=== PATIENT | female | born 1960 | race Caucasian/White ===

== ENCOUNTER → 2016-12-26 | Outpatient (CLI) | payer MEDICARE, MEDICAID ==
[~2016-12-26] MED LIST: CARV3.123 PO; CLON0.122 PO; DIPH1TAB PO; INFL100V IV; MESA400C2 PO; MIDO10TA PO; SOTA80TA PO; TRAM50TA4 PO
--- NOTE | 2016-12-26 10:39 | DI ---
Indication: ITS.REASON: Z72.0 Tobacco use PROCEDURE: CT LUNG SCREENING: Encounter: Initial Comparison: CT abdomen/pelvis dated November 08, 2016 Technique: Axial noncontrast CT imaging of the chest was performed on a [employer] Aquilion Prime [address] scanner using an ACR approved low dose lung cancer screening protocol. 1 mm thick axial slices were obtained with coronal and sagittal two-dimensional reformats. Automated Exposure Control and Iterative Reconstruction dose lowering techniques were utilized. Dose (DLP): 72.1 mGy.cm Prerequisites: This exam was performed in a facility that meets the criteria for the LDCT screening program. Data regarding this exam was submitted to an approved registry. The order for this exam indicates that it came as a result of a lung cancer screening counseling and shared decision-making visit that included all of the elements required of such a visit. The radiologist interpreting this exam meets the [facility] criteria for the LDCT lung cancer screening program. Standardized reporting is followed using the ACR Lung-RADS nomenclature and is extracted using a [employer] reporting system. Findings: Calcified 4 mm granuloma in the right lower lobe on axial image #205. There is also subpleural completely calcified granuloma in the right lower lobe on axial image #182 measuring 6 mm in size. Completely calcified 4 mm granuloma in the left lower lobe on image #192. No noncalcified pulmonary nodules or masses appreciated. No consolidative pneumonia, pleural effusion or pneumothorax. The central airways are patent. No evidence of bronchial wall thickening. Prior sternotomy with cardiac valve replacement. Left dual lead cardiac pacemaker and right internal jugular port catheter in place. No axillary or mediastinal adenopathy. Calcified bilateral hilar granulomas. Heart size is normal. No pericardial effusion. The upper abdomen shows no acute findings. 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 Bone windows are unremarkable. Mild emphysema. Impression: Evidence of prior extensive granulomatous disease but no concerning pulmonary nodule. Assessment: Lung-RADS 1: Negative. Recommend continued annual low dose CT lung cancer screening in 12 months. .
== END ==
LOC: IMA 09:52
PROVIDERS: ATTEND Family Medicine
DX: Z87.891 Personal history of nicotine dependence (principal); R91.8 Other nonspecific abnormal finding of lung field

== ENCOUNTER 2017-01-18 23:26 | Observation (INO) | payer MEDICARE, MEDICAID ==
[~2017-01-18] VITALS: Ht 162.6 cm; Wt 58.6 kg
--- NOTE | 2017-01-18 23:28 | NUR ---
ROOM PT TRANSFERED FROM EMS CART ONTO ED CART BY STAFF PT IS DROWSY, BUT AWAKE AND TALKING PT STATES SHE HAS BEEN DEPRESSED LATELY AND SHE HAS TROUBLE SLEEPING STATES SHE TOOK THE MEDS TO BE ABLE TO SLEEP, DENIES TRYING TO KILL HERSELF
--- NOTE | 2017-01-18 23:53 | NUR ---
LAB LAB IN ROOM TO OBTAIN BLOOD DRAW BY EMS PT ASKING FOR WATER WAS INFORMED SHE NEEDS TO WAIT UNTIL SHE SEES THE
[2017-01-18 23:59] LABS: BASOPHILS # (AUTO) 0.1 T/MM3 (0-0.2); BASOPHILS % (AUTO) 0.7 % (0-2); EOSINOPHILS # (AUTO) 0.5 T/MM3 (0-0.5); EOSINOPHILS % (AUTO) 4.7 % (0-4); HCT - HEMATOCRIT 34.2 % (36-46); HGB - HEMOGLOBIN 11.3 GM/DL (12-16); IMMATURE GRANULOCYTE # (AUTO) 0.09 T/MM3 (0.00-0.03); IMMATURE GRANULOCYTE % (AUTO) 0.8 % (0.0-0.5); LYMPHOCYTES # (AUTO) 3.8 T/MM3 (1-4.8); MEAN CORPUSCULAR HGB 30.5 UUG (26-34); MEAN CORPUSCULAR VOLUME 92.4 UM3 (80-100); MONOCYTES # (AUTO) 0.9 T/MM3 (0-0.8); NEUTROPHILS #(AUTO)-ABSOLUTE 6.1 T/MM3 (1.8-7.7); NEUTROPHILS % (AUTO) 52.8 % (33-66); WBC - WHITE BLOOD COUNT 11.5 T/MM3 (4.5-11.0)
[2017-01-19] VITALS (8 sets, daily range): BP systolic 90–121; BP diastolic 60–77; PULSE 62–72; RESP 16–24; TEMP 95.3–96.9; O2SAT 95–97; Ht 162.6 cm; Wt 58.6 kg
--- NOTE | 2017-01-19 00:05 | NUR ---
WATER PT HAS CUP ON TRAY AT SIDE OF THE CART THAT IS FULL OF WATER PT KNOWS THAT DR TOLD HER NO WATER FOR NOW, BUT SHE GOT SOME ANYWAY PT REPORTS SHE CRAWLED OUT THE FOOT OF THE CART, WALKED TO THE SINK, TOOK A CUP "FROM THE TOP OF TRASH" AND GOT WATER. SHE THEN WENT BACK TO FOOT OF THE CART AND CRAWLED BACK UP ON THE CART. STATES SHE HAS TO HAVE IT SHE IS JUST TO DRY.
[2017-01-19 00:08] LABS: ACETAMINOPHEN < 10 UG/ML (10-30); ALBUMIN/GLOBULIN RATIO 1.3 RATIO (1.1-2.2); ALKALINE PHOSPHATASE 66 U/L (38-126); ALT (SGPT) 30 U/L (9-52); ANION GAP 12 MEQ/L (5-15); AST (SGOT) 48 U/L (14-36); BUN/CREATININE RATIO 16 RATIO (6-26); CALCIUM 9.3 MG/DL (8.4-10.2); CHLORIDE 108 MEQ/L (98-107); CO2 - CARBON DIOXIDE 20 MEQ/L (22-30); CREATININE 0.8 MG/DL (0.7-1.2); ETHANOL <10 MG/DL (<10); GLOMERULAR FILTRATION RATE 74; GLUCOSE 117 MG/DL (65-110); POTASSIUM 4.5 MEQ/L (3.6-5); SALICYLATE < 1.0 MG/DL (2-20); SODIUM 140 MEQ/L (134-144); TOTAL PROTEIN 7.2 G/DL (6.3-8.2)
--- NOTE | 2017-01-19 00:33 | NUR ---
EMISIS PT HAS VOMITED ABOUT 400CC IN EMESIS BAG EMESIS IS MOSTLY WATER PT TOLD TO STOP GETTING WATER AND DRINKING IT WHILE HER STOMACH IS UPSET STATES SHE IS NOT SWALLOWING THE WATER, JUST WETTING HER MOUTH
--- NOTE | 2017-01-19 00:51 | NUR ---
EKG EKG OBTAINED
--- NOTE | 2017-01-19 01:03 | NUR ---
ELIMINATION/ACTIVITY PT TAKEN TO BATHROOM TO VOID FOR LAB PT STATES SHE IS UNABLE TO WALK RIGHT BECAUSE SHE IS WEAK AND HER LEGS ARE HURTING NOW. PT IS UNSTEADY WITH GAIT AND WAS TAKEN TO BATHROOM PER W/C AND AMBULATES WITH ONE STAFF
--- NOTE | 2017-01-19 01:10 | NUR ---
NAUSEA PT NOW WANTS SOMETHING FOR NAUSEA ALSO WANTING MORE WATER TO DRINK DR SORTO AWARE
[2017-01-19 01:14] LABS: BLOOD, URINE NEGATIVE (NEGATIVE); COLOR,URINE YELLOW (YELLOW); LEUKOCYTE ESTERASE ,URINE 1+ (NEGATIVE); NITRITE,URINE NEGATIVE (NEGATIVE); UROBILINOGEN,URINE 0.2 EU/DL (NORMAL)
[2017-01-19 01:20] LABS: BACTERIA,URINE NONE SEEN (NEGATIVE); RBC,URINE NONE SEEN /HPF (0-3)
[2017-01-19] MEDS ORDERED: FAMO-136 PO (01:21)
[2017-01-19] MEDS ORDERED: DICY10CA13 PO (01:21)
[2017-01-19] MEDS ORDERED: ATOR40TA64 PO (01:21)
--- NOTE | 2017-01-19 01:23 | ERPDOC ---
Departure Disposition Decision Date: Jan 19, 2017 Disposition Decision Time: 01:44 Disposition: 02 TO OBS [facility] [place] Impression Impression Impression: Primary Impression: Medication overdose Encounter type: initial encounter Injury intent: undetermined intent Qualified Codes: T50.904A - Poisoning by unspecified drugs, medicaments and biological substances, undetermined, initial encounter Severity: Moderate Condition: Improved Seen By: Physician only Referrals: TEDDY DON MD (Family) Problems/Meds/Labs Reviewed?: Yes Medications reviewed and manag: Yes Follow up care ordered?: Yes Mental Status: Alert, Oriented HPI - General Medical General Chief Complaint: Accidental Overdose Stated Complaint: SOA Time Seen by Provider: 23:42 Source: patient Exam Limitations: no limitations HPI - General Medical Initial Comments 56-year-old female presents to the emergency department with a chief complaint of an accidental overdose of her medications. Patient claims that she to approximately a handful of 50 mg hydroxyzine tablets and approximately another handful of her prescription Klonopin tablets in an attempt to sleep earlier today. Patient states that she took the medications between 9 and 10 PM. Patient denies any pain or discomfort. Patient denies any other complaints or associated symptoms. Patient denies any other self injury or self-harm. She denies homicidal/suicidal ideation or plan. She denies taking any other medications. EMS was unable to locate the patient's pill bottle for hydroxyzine and hydroxyzine is not on the patient's current medication list. Occurred At: home Onset: Gradual Allergies: Coded Allergies: niacin (Verified Allergy, Severe, AIRWAY OBSTRUCTION, 01/18/17) codeine (Verified Allergy, Intermediate, ITCHING, 01/18/17) escitalopram (Verified Allergy, Unknown, ITCHING, 01/18/17) mercaptopurine (Verified Allergy, Unknown, 01/18/17) prochlorperazine edisylate (Unverified Allergy, Unknown, SLEEP WALKS, 01/18) prochlorperazine maleate (Unverified Allergy, Unknown, SLEEP WALKS, ) duloxetine (Verified Adverse Reaction, Intermediate, blackout, 01/18/17) quetiapine (Verified Adverse Reaction, Unknown, HEART PALPITATIONS, ) Past History Past Medical History Metabolic: hypercholesterolemia, hypertension Cardiac: A-fib, CAD Hx Echocardiogram: No Respiratory: COPD GI: GERD, crohn's, gallbladder disease Female: UTI Psychological: bipolar Surgical History General: appendix, exploratory laparotomy, gallbladder Cardiac: pacemaker, valve replacement Family History Family PMH: FOUND: CAD, cancer, diabetes Vaccines Hx Influenza Vaccination: No (DECLINES) Hx Pneumococcal Vaccination: No Social History Smoking Status: Current every day smoker # of Packs/Tins per Day: 0.5 # of Years: 30 Substance Use Type: does not use Alcohol Intake: none Review of Systems Constitutional Constitutional: DENIES: chills, fever Eyes General: DENIES: erythema, exudate Lids/Accessories: DENIES: erythema, swelling Vision: DENIES: acuity, blurring ENMT Ears: DENIES: drainage, erythema Hearing: DENIES: hearing loss Balance: DENIES: ataxia, falling to one side Sinuses: DENIES: congestion, pain Nose: DENIES: nosebleeds, pain Mouth/Throat: DENIES: painful swallowing, sore throat Teeth: DENIES: pain Jaw: DENIES: pain Cardiovascular Cardiac: DENIES: chest pain, dyspnea on exertion Rhythm/Rate: DENIES: irregular beat, palpitations Vascular: DENIES: pedal edema, unilateral swelling Pulmonary Respiratory: DENIES: cough, dyspnea, pleuritic chest pain, sputum GI Upper Abdomen: DENIES: nausea, pain, vomiting Lower Abdomen: DENIES: diarrhea, pain General: DENIES: dysuria, frequency Musculoskeletal General: DENIES: joint pain, tenderness Integumentary Skin: DENIES: itching, rash Neurological General: DENIES: headache, numbness, weakness Psychiatric Psychiatric: depression Endocrine Endocrine: DENIES: polydipsia, polyphagia Hematologic/Lymphatic Hematologic/Lymphatic: DENIES: frequent nosebleeds, lymphadenopathy Allergic/Immunological Allergic/Immunoligical: DENIES: allergic reactions, hives Physical Exam General General Nourishment: well nourished, well developed, appears stated age, no acute distress, adult General Body Habitus: well groomed Vitals and Pain First Documented Vital Signs Date Time Temp Pulse Resp B/P Pulse Ox O2 Delivery O2 Flow Rate FiO2 01/18/17 23:28 98.1 69 16 122/79 97 Room Air Weight: Kilograms: 59.700 Height (feet): 5 Height (inches): 4.00 Triage Pain Scale: RN VS reviewed by Provider: Yes Normal Exams: Head: Normocephalic w/o trauma Eyes: Pupils are PERRLA w/ EOMI, No scleral icterus, irritation, or foreign bodies noted ENMT: No facial trauma, nasal exudates, pharyngeal erythema, or exudates are noted Dental: No fractured, loose, or missing teeth noted Neck: Full range of motion, without adenopathy, JVD, bruits or thyromegaly Chest/Resp: Clear all rowley, with good airflow, and symmetry bilaterally CV: Regular rate and rhythm, without murmur or gallop, Pulses 2+ all extremities, capillary refill, <2 seconds all ext., no pedal edema noted Abdomen: Bowel sounds positive, soft, non-tender, non-distended, no hepatosplenomegaly, masses or bruits noted Lymphatic: No lymphadenopathy, or lymphedema noted Musculoskeletal: No tenderness, or deformity noted, good range of motion, all extremities Integumentary: No rashes, hives, or bruising noted, hair and nails, without abnormality Neurologic: Patient is alert, and oriented, cranial nerves, motor/sensory/ cerebellar, exams w/o gross deficits, to observation Psychiatric: Patient exhibits, appropriate attention, emotion and affect Differential Diagnoses Considering: Depression, Medication Effect, Metabolic, Poisoning/Accidental OD Progress Results/Orders Orders Procedure Category Date Status Time Cbc W/Auto LAB 01/18/17 Complete Diff-Reflex Manual Cmp - Comprehensive LAB 01/18/17 Complete Metabolic EKG EKG 01/18/17 Logged Ethanol LAB 01/18/17 Complete Acetaminophen LAB 01/18/17 Complete Salicylate LAB 01/18/17 Complete Drug Screen LAB 01/18/17 Complete [place] [facility] [place]A, LAB 01/19/17 Complete Dip&Micro(Complete) & 01:08 Place In Facility: ED ADM 01/19/17 Transmitted 01:53 Normal Saline (Ns) PHA 01/19/17 In Process 02:00 Lab Results Laboratory Tests Test 01/18/17 23:53 01/19/17 01:08 White Blood Count 11.5T/MM3 Red Blood Count 3.70M/MM3 Hemoglobin 11.3GM/DL Hematocrit 34.2% Mean Corpuscular Volume 92.4UM3 Mean Corpuscular Hemoglobin 30.5UUG Mean Corpuscular Hemoglobin Concent 33.0GM/DL RDW Standard Deviation 42.3FL Platelet Count 430T/MM3 Mean Platelet Volume 9.0UM3 Immature Granulocyte % (Auto) 0.8% Neutrophils (%) (Auto) 52.8% Lymphocytes (%) (Auto) 33.0% Monocytes (%) (Auto) 8.0% Eosinophils (%) (Auto) 4.7% Basophils (%) (Auto) 0.7% Absolute Immature Granulocyte (auto 0.09T/MM3 Absolute Neutrophils (auto) 6.1T/MM3 Absolute Lymphocytes (auto) 3.8T/MM3 Absolute Monocytes (auto) 0.9T/MM3 Absolute Eosinophils (auto) 0.5T/MM3 Absolute Basophils (auto) 0.1T/MM3 Turbidity < 20 Sodium Level 140MEQ/L Potassium Level 4.5MEQ/L Chloride Level 108MEQ/L Carbon Dioxide Level 20MEQ/L Anion Gap 12MEQ/L Blood Urea Nitrogen 13.0MG/DL Creatinine 0.8MG/DL Glomerular Filtration Rate Calc 74 BUN/Creatinine Ratio 16RATIO Glucose Level 117MG/DL Calculated Osmolality 270MOSM/KG Calcium Level 9.3MG/DL Total Bilirubin 0.90MG/DL Icterus Index < 2 Aspartate Amino Transf (AST/SGOT) 48U/L Alanine Aminotransferase (ALT/SGPT) 30U/L Alkaline Phosphatase 66U/L Total Protein 7.2G/DL Albumin 4.0G/DL Globulin 3.2G/DL Albumin/Globulin Ratio 1.3RATIO Chemistry Specimen Hemolysis 169 Salicylates Level < 1.0MG/DL Acetaminophen Level < 10UG/ML Alcohol, Quantitative <10MG/DL Urine Collection Type Cleancatch-midstream Urine Color Yellow Urine Turbidity Clear Urine pH 5.0 Urine Specific [place] 1.025 Urine Protein Negative Urine Glucose (UA) Negative Urine Ketones Negative Urine Blood Negative Urine Nitrite Negative Urine Bilirubin Negative Urine Urobilinogen 0.2EU/DL Urine Leukocyte Esterase 1+ Urine RBC None seen/HPF Urine WBC 3-5/HPF Urine Bacteria None seen Urine Culture Indicated Cult not indicated Urine Opiates Screen NegativeNG/ML Urine Oxycodone Screen NegativeNG/ML Urine Methadone Screen NegativeNG/ML Urine Propoxyphene Screen NegativeNG/ML Urine Barbiturates Screen NegativeNG/ML Urine Tricyclic Antidepressants NegativeNG/ML Urine Phencyclidine Screen NegativeNG/ML Urine Amphetamines Screen NegativeNG/ML Urine Methamphetamines Screen NegativeNG/ML Urine Benzodiazepines Screen PositiveNG/ML Urine Cocaine Screen NegativeNG/ML Urine Cannabinoids Screen NegativeNG/ML Urine Drug Screen Confirmation Sent out Urine Drug Screen Information Pending Medications Current ED Medications Sodium Chloride 500 ml @ 999 mls/hr Q31M ONCE IV ; Start 01/19/17 at 02:00; Stop 01/19/17 at 02:30 Sodium Chloride (Normal Saline IV) 1,000 ml @ 100 mls/hr Q10H IV ; Start at 02:01; Status UNV Progress Progress Labs are discussed in detail with the patient and questions are answered. Patient is given gentle IV hydration. Since we're unable to quantify the exact amount of the medications that were taken or even the exact medications themselves the patient will be admitted to the hospital in observation status. Patient is discussed with Dr. Avalos who is in agreement with the current plan of management. Patient is admitted to the service of the hospitalist (Dr. Zaman) in improved condition. No further orders from accepting physician who is in agreement with the current plan of management. Patient was discussed with poison control and recommendations are followed. EKG EKG : Rate: 60-100 Rhythm: other (electronic atrial paced rhythm.) [place]: normal QRS: RBBB Intervals: normal ST/T: non-specific changes Interpreted by: signing physician BÁRBARA SORTO DO Jan 19, 2017 01:23 Urine Cocaine Screen NegativeNG/ML Urine Cannabinoids Screen NegativeNG/ML Urine Drug Screen Confirmation Sent out Urine Drug Screen Information Pending Medications Current ED Medications Sodium Chloride 500 ml @ 999 mls/hr Q31M ONCE IV ; Start 01/19/17 at 02:00; Stop 01/19/17 at 02:30 Sodium Chloride (Normal Saline IV) 1,000 ml @ 100 mls/hr Q10H IV ; Start at 02:01; Status UNV Ondansetron HCl (Zofran) 4 mg Q6H PRN IV NAUSEA &/OR VOMITING; Start 01/19/17 at 02:15; Status UNV Progress Progress Labs are discussed in detail with the patient and questions are answered. Patient is given gentle IV hydration. Since we're unable to quantify the exact amount of the medications that were taken or even the exact medications themselves the patient will be admitted to the hospital in observation status. Patient is discussed with Dr. Pelayo who is in agreement with the current plan of management. Patient is admitted to the service of the hospitalist in improved condition. No further orders from accepting physician is in agreement with the current plan of management. Patient was discussed with poison control and recommendations are followed. EKG EKG : Rate: 60-100 Rhythm: other (electronic atrial paced rhythm.) [place]: normal QRS: RBBB Intervals: normal ST/T: non-specific changes Interpreted by: signing physician BÁRBARA SORTO DO Jan 19, 2017 01:23
[2017-01-19 01:25] LABS: AMPHETAMINE SCREEN,URINE NEGATIVE; BARBITURATE SCREEN,URINE NEGATIVE; BENZODIAZEPINES SCREEN,URINE POSITIVE; CANNABINOID SCREEN,URINE NEGATIVE; COCAINE SCREEN,URINE NEGATIVE; METHADONE SCREEN, URINE NEGATIVE; METHAMPHETAMINE SCREEN, URINE NEGATIVE; OPIATE SCREEN,URINE NEGATIVE; PHENCYCLIDINE SCREEN,URINE NEGATIVE; TRICYCLIC ANTIDEPRESSANT,URINE NEGATIVE
[2017-01-19] MEDS ORDERED: NORMAL SALINE 500 ML IV ONE (02:00)
--- NOTE | 2017-01-19 02:14 | NUR ---
REPORT REPORT CALLED TO MILA VALENTIN ON MEDICAL UNIT
--- NOTE | 2017-01-19 02:30 | NUR ---
ARRIVAL: PT ARRIVED IN A WHEELCHAIR BROUGHT BY PJ. PT IS ON RA, NEEDS GATE BELT TO AMBULATE TO THE BATHROOM. VSS.
--- NOTE | 2017-01-19 02:30 | NUR ---
ADMIT PT TAKEN TO MEDICAL UNIT, ROOM 140 PER W/C PT ESCORTED TO ROOM BY RN
[2017-01-19] MEDS: ONDANSETRON 4mg/2ml INJECTION IV PRN ×3 (03:35→17:03)
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
[2017-01-19] MEDS: NORMAL SALINE 1,000 ML IV SCH ×2 (04:20→14:57)
--- NOTE | 2017-01-19 05:28 | NUR ---
SHIFT SUMMARY: PT A&OX3, SPEAKS SLOWLY. PT IS ON CLEAR LIQUIDS; PT HAS BEEN SLEEPING AN HOUR AFTER ARRIVING TO THE MEDICAL UNIT; TELEMETRY AND PULSE OXIMETRY; FLUIDS RUNNING (NORMAL SALINE @ 100 MLS/HR); ON ROOM AIR; PT AMBULATES TO BATHROOM WITH 1 ASSIST AND GATE BELT SINCE SHE IS A LITTLE UNSTEADY ON HER FEET. PT STATES SHE DOESN'T LIKE LIVING IN THE HUD HOUSING, BECAUSE SHE DOESN'T FIT INTO THE "CLICK." CALL LIGHT WITHIN REACH, BED ALARM ON.
[2017-01-19 07:17] LABS: BASOPHILS # (AUTO) 0.1 T/MM3 (0-0.2); BASOPHILS % (AUTO) 0.7 % (0-2); EOSINOPHILS # (AUTO) 0.5 T/MM3 (0-0.5); HCT - HEMATOCRIT 31.5 % (36-46); HGB - HEMOGLOBIN 10.4 GM/DL (12-16); IMMATURE GRANULOCYTE # (AUTO) 0.05 T/MM3 (0.00-0.03); IMMATURE GRANULOCYTE % (AUTO) 0.6 % (0.0-0.5); LYMPHOCYTES % (AUTO) 33.7 % (23-45); MEAN CORPUSCULAR HGB 30.8 UUG (26-34); MEAN CORPUSCULAR VOLUME 93.2 UM3 (80-100); MEAN PLATELET VOLUME 8.5 UM3 (9.4-12.4); MONOCYTES # (AUTO) 0.8 T/MM3 (0-0.8); MONOCYTES % (AUTO) 8.4 % (0-9.0); NEUTROPHILS #(AUTO)-ABSOLUTE 4.6 T/MM3 (1.8-7.7); NEUTROPHILS % (AUTO) 51.6 % (33-66); RED BLOOD COUNT 3.38 M/MM3 (4.00-5.20); WBC - WHITE BLOOD COUNT 8.9 T/MM3 (4.5-11.0)
[2017-01-19 07:29] LABS: ANION GAP 9 MEQ/L (5-15); BUN/CREATININE RATIO 15 RATIO (6-26); CALCIUM 8.8 MG/DL (8.4-10.2); CHLORIDE 110 MEQ/L (98-107); CO2 - CARBON DIOXIDE 25 MEQ/L (22-30); CREATININE 0.8 MG/DL (0.7-1.2); GLOMERULAR FILTRATION RATE 74; GLUCOSE 85 MG/DL (65-110); POTASSIUM 4.3 MEQ/L (3.6-5); SODIUM 144 MEQ/L (134-144)
[2017-01-19] MEDS ORDERED: NICOTINE PATCH REMOVAL TD PRN (09:30)
[2017-01-19] MEDS: PANTOPRAZOLE 40mg INJECTION IV SCH (09:38)
[2017-01-19] MEDS: ACETAMINOPHEN 325 MG TABLET PO PRN ×2 (10:12→16:25)
[2017-01-19] MEDS: MESALAMINE 800 MG TABLET PO SCH ×2 (11:45→20:35)
[2017-01-19] MEDS: SOTALOL 80 MG TABLET PO SCH ×2 (11:45→20:35)
[2017-01-19] MEDS: NICOTINE 14 MG PATCH TD PRN (11:46)
--- NOTE | 2017-01-19 11:47 | NUR ---
DM Screen Diet Order: Cl Liquid Intake: 100% DM Screen is a false positive as pt does not have hx of Diabetes RD available at ext [phone]
[2017-01-19] MEDS: MIDODRINE 10 MG TABLET PO SCH ×2 (12:05→20:36)
--- NOTE | 2017-01-19 12:37 | NUR ---
ELKE WILLIS IS 2. Addendum: 01/19/17 at 1237 by NORBERT HAWKINS SW Amended: Links added.
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
[2017-01-19] MEDS: CARVEDILOL 3.125 MG TABLET PO SCH (17:02)
--- NOTE | 2017-01-19 17:04 | NUR ---
bp 90/60 coreg held co of dali Bryant 4 mg janene mejia.
[2017-01-19] MEDS ORDERED: DIPHENOXYLATE/ATROPINE TABLET PO PRN (17:30)
[2017-01-19] MEDS: CLONAZEPAM 0.5 MG TABLET PO SCH (17:48)
--- NOTE | 2017-01-19 18:13 | NUR ---
emotional Becoming irritable co of feeling bad ,calls frequently with numerous complaints.pain level is a [address] Zaman notified anf some home medications restarted. did walk in sarmiento with P.T and was up in chair.
--- NOTE | 2017-01-19 18:51 | NUR ---
status less anxious now able to eat 100% of regular diet. continue to monitor no seizure activity noted .
[2017-01-19] MEDS: TRAMADOL 50 MG TABLET PO SCH (20:36)
[2017-01-19] MEDS: DICYCLOMINE 10 MG CAPSULE PO SCH (21:03)
[2017-01-19] MEDS ORDERED: ATORVASTATIN 40 MG TABLET PO SCH (22:00)
[2017-01-20] VITALS: BP 128/80; PULSE 66; RESP 16; TEMP 96.2; O2SAT 94
[2017-01-20] MEDS: NORMAL SALINE 1,000 ML IV SCH ×3 (01:21→11:40)
[2017-01-20 04:25] VITALS: BP 128/84; PULSE 66; RESP 16; TEMP 95.4; O2SAT 94
--- NOTE | 2017-01-20 05:15 | NUR ---
SHIFT SUMMARY: PT A&OX3, SPEAKS SLOWLY (PT STATES SHE IS FROM [place]), REGULAR DIET, SLEPT WELL DURING THE NIGHT, TELEMETRY AND PULSE OXIMETRY; FLUIDS RUNNING (NORMAL SALINE @ 100 MLS/HR); ROOM AIR; AMBULATES TO BATHROOM WITH 1 ASSIST AND WALKER; CALL LIGHT WITHIN REACH, BED ALARM ON.
--- NOTE | 2017-01-20 05:22 | NUR ---
[facility]: REC'D A CALL FROM JOHN AT [facility] REQUESTING PT STATUS (VITALS, AMBULATING, INTERACTION). GAVE JOHN THE FOLLOWING INFORMATION: VITALS FROM SHIFT (INTERVENTION LOG), PT IS SMILING MORE AND IS RELAXED DURING 2ND HALF OF MY SHIFT. JOHN SAID HE WILL SIGN-OFF ON PT'S CASE. AFTER HANGING UP WITH JOHN, PT STATES SHE FEELS GOOD AND WANTS TO GO HOME TODAY. WILL PASS THIS INFORMATION ON TO DAY SHIFT RN.
[2017-01-20] MEDS: SOTALOL 80 MG TABLET PO SCH (06:23)
[2017-01-20] MEDS: ACETAMINOPHEN 325 MG TABLET PO PRN (06:50)
[2017-01-20 07:26] VITALS: BP 114/69; PULSE 68; RESP 18; TEMP 96.7; O2SAT 94
[2017-01-20] MEDS: CARVEDILOL 3.125 MG TABLET PO SCH (07:58)
[2017-01-20] MEDS: MESALAMINE 800 MG TABLET PO SCH (07:58)
[2017-01-20] MEDS: DICYCLOMINE 10 MG CAPSULE PO SCH ×2 (07:58→11:40)
[2017-01-20] MEDS: PANTOPRAZOLE 40mg INJECTION IV SCH (07:59)
[2017-01-20] MEDS: MIDODRINE 10 MG TABLET PO SCH (08:00)
[2017-01-20] MEDS: TRAMADOL 50 MG TABLET PO SCH (08:01)
[2017-01-20] MEDS: CLONAZEPAM 0.5 MG TABLET PO SCH (08:02)
[2017-01-20] MEDS: NICOTINE 14 MG PATCH TD PRN (08:04)
[2017-01-20 08:31] VITALS: PULSE 70; RESP 18
[2017-01-20] MEDS ORDERED: FAMOTIDINE 20 MG TABLET PO SCH (09:00)
--- NOTE | 2017-01-20 11:22 | NUR ---
CM SPOKE WITH PT AGAIN. SHE SAID SHE FEELS READY TO BE DC'D AND HER PLAN IS STILL TO RETURN HOME. SHE SAID HER [employer] FRIEND CALLED HER, AND WILL PROVIDE A RIDE HOME WHEN PT IS DC'D. PT IS PENDING A PSYCH CONSULT. DC PLAN IS HOME AFTER PSYCH CONSULT--IF CLEARED BY PSYCH. Addendum: 01/20/17 at 1123 by NORBERT HERNÁNDEZ Amended: Links added.
[2017-01-20 11:38] VITALS: BP 117/74; PULSE 63; RESP 18; TEMP 97.6; O2SAT 93
--- NOTE | 2017-01-20 12:24 | PNPDOC ---
Subjective Date DATE: 01/20/17 TIME: 12:18 Subjective F/U: Overdose. Doing better this morning. Feels less unsteady and weak - would like walker for home, as sometimes is difficult to get around and as had some falls. Breathing well. No chest pain. Eating well. No nausea or ab pain. Urinating well. No f/c. Objective Vital Signs Vital signs Vital Signs Date Time Temp Pulse Resp B/P Pulse Ox O2 Delivery O2 Flow Rate FiO2 01/20/17 11:38 97.6 63 18 117/74 93 Room Air Telemetry Rhythm: Sinus Rhythm Height (Feet): 5 Height (Inches): 4.00 Weight (Kilograms): 58.600 General General Appearance: Alert, Well Nourished, Well Developed, Cooperative, No Acute Distress, Looks Stated Age Eyes (Brief) Eyes: FOUND: EOMI, PERRL, NOT FOUND: scleral icterus ENMT (Brief) ENMT: FOUND: hearing intact, mucosa moist Neck (Brief) Neck: FOUND: midline, NOT FOUND: nuchal rigidity, spasm Respiratory (Brief) Respiratory: FOUND: clear all rowley, equal bilaterally, NOT FOUND: rales, wheezes Cardiovascular (Brief) Cardiac: FOUND: regular rate, regular rhythm, NOT FOUND: pedal edema Abdomen (Brief) Abdominal: FOUND: BS normo active x4, soft, NOT FOUND: distended, tender Extremities (Brief) Extremity : Side: Bilateral Extremity: leg Extremity Finding: NOT FOUND: edema Musculoskeletal (Brief) Musculoskeletal: FOUND: extremities move equally, NOT FOUND: deformity, spasm Integumentary (Brief) Integumentary: FOUND: dry, warm Neurologic (Brief) Neurological: FOUND: cranial 2-12 intact, motor (Intact ) Psychiatric (Brief) Psychiatric: FOUND: alert, attentive, normal affect, oriented Laboratory Laboratory Laboratory Tests 01/18/17 23:53 01/19/17 07:12 Laboratory Tests 01/18/17 23:53 01/19/17 07:12 Microbiology Microbiology Microbiology Date/Time Source Procedure Growth Status 01/20/17 10:17 Throat Group A Streptococcus Culture - Preliminary CULTURE INITIATED - RESULTS PENDING Resulted Assessment & Plan Problems: (1) Toxic encephalopathy Status: Resolved Assessment & Plan: POA (2) Medication overdose Status: Resolved Qualifiers: Encounter type: initial encounter Injury intent: undetermined intent Qualified Codes: T50.904A - Poisoning by unspecified drugs, medicaments and biological substances, undetermined, initial encounter (3) Major depression Status: Chronic (4) Cardiomyopathy Status: Chronic Assessment & Plan: verify bblocker and dose with the above. On atorvastatin for high cholesterol. Leukocytosis noted with UA fine, monitor temp and recheck. Low bicarb, perhaps metabolic acidosis from the above. Recheck at 0800 with low threshold for vbg or abg pending clinical course. (5) HTN (hypertension) Status: Chronic Qualifiers: Hypertension type: essential hypertension Qualified Codes: I10 - Essential (primary) hypertension (6) Dyslipidemia Status: Chronic (7) Gait instability Status: Chronic Plan/Intensity of Service Case discussed with Psychiatry - had chronic depression, but not suicidal/ homicidal and not a danger to herself or others. Medically doing well - encephalopathy resolved. Will discharge to home in good condition. May have Front wheeled walker for gain instability. F/U with Dr Hurd in once week Continue outpatient psychiatric follow up for mental health care. See orders for details. Code Status Full Code Hospital Course Summary Disclaimer The hospital course summary below is not to be considered part of the above Progress Note. MARCELINA LE MD Jan 20, 2017 12:21
--- NOTE | 2017-01-20 13:55 | NUR ---
DISCHARGE PT DISCHARGED TO HOME FOR SELF CARE. FRIEND TO [employer] AND TAKE PT HOME. IV DISCONTINUED. ESCORTED OUT VIA STAFF TO FRIENDS CAR WITH DISCHARGE PACKET AND BELONGINGS IN HANDS. PT VERBALIZED UNDERSTANDING OF DISCHARGE TEACHING
--- NOTE | 2017-01-20 13:58 | NUR ---
CM PHYS THERAPY RECOMMENDED A WALKER FOR HOME. SCRIPT OBTAINED. SPOKE WITH PT AND [employer]; PT WAS PROVIDED A LOANER WALKER THROUGH [employer]. THIS WORKER WILL FAX SCRIPT TO DME COMPANY FOR HOME DELIVERY DURING BUSINESS HOURS. PT AWARE AND AGREEABLE. SHE HAD NO DME COMPANY PREFERENCE.
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
--- NOTE | 2017-01-21 13:30 | DSF ---
ADMISSION DIAGNOSIS Intentional overdose. DISCHARGE DIAGNOSIS Toxic encephalopathy resolved. Intentional overdose - hydroxyzine and clonazepam. Major depressive disorder - no suicidal/homicidal thoughts or ideation. Cardiomyopathy. History of atrial fibrillation. History of porcine valve replacement. Leukocytosis. Anemia. Hypertension. Dyslipidemia. PROCEDURES None. CONSULTS Sola Boogie MD Psychiatry. CLINICAL RESUME Ms. Durand is a 56-year-old female with history of Crohn disease and mitral valve replacement as well as hypertension, cardiomyopathy, dyslipidemia, atrial fibrillation who presents to [facility] Emergency Room secondary to accidental overdose. She does have depression but denies worsening depression and not feeling suicidal. She reports she does not like her current living arrangement in [facility] housing and is not part of the popular clique. She was tired of hearing about things and wanted to sleep so she took a handful of hydroxyzine and clonazepam. She cannot quantitate how much she took. This occurred at 9 o'clock to 10 o'clock p.m. on evening of . She denies any other drug ingestion in the last hours. She denies other recent medication changes or plans for suicide. She has not had nausea or vomiting. She feels tired and thirsty. EMS was activated. They were unable to locate patient's pill bottles of hydroxyzine. Hydroxyzine is not on her medication list. She was transported to [facility] for further evaluation and treatment. For complete details of the H&P refer to that document. LABORATORY White blood count 11.5 with hemoglobin 11.3, hematocrit 34.2, MCV 92.4 and platelets 430,000. Serum sodium is 148, potassium 4.5, chloride 108, CO2 20, BUN 13 with creatinine 0.8, GFR 74 and blood glucose 117. AST is slightly elevated at 48 with ALT normal at 30. TSH is normal at 3.80. UA reveals 1+ leukocyte esterase. Salicylate is less than 10 with acetaminophen less than 10. Quantitative alcohol less than 10. Urine for drugs abuse is positive only for benzodiazepines. Group A strep screen is negative. Pending laboratory includes iron, TIBC vitamin B12 and folic acid. HOSPITAL COURSE The patient was placed in outpatient observation status at [facility] under the care of Dr. Zaman. Cardiac telemetry and continuous oximetry was monitored. Once she became more awake and alert diet was advanced. PT was consulted for gait evaluation. Social Work was consulted. Additionally, we consulted with Psychiatry for evaluation of her drug ingestion. Overall, her hospital course was one of good improvement. Her leukocytosis did defervesce. Renal status remained stable. Respiratory status and blood pressure did well. The patient did participate well with physical therapy. She felt a walker would be beneficial so a prescription for a front-wheeled walker was given to the patient at time of discharge. She was evaluated by Dr. Boogie who did discuss starting antidepressant with the patient. The patient did refuse. The patient did wish to continue followup for medical management and therapy at [facility]. Dr. Boogie did encourage patient to do this as well as to be active in her mosque which seems to be a helpful support system and coping method for her. Dr. Boogie not feel the patient was in any current imminent danger to herself and did not feel further inpatient psychiatric stabilization was required. As her encephalopathy resolved, blood pressure was stable, she was eating and drinking well, and vitals were stable. We discussed about discharge to home and the patient felt agreeable to this. She was able to be discharged to home in stable condition. NARRATIVE DISCLAIMER: The above narrative is a brief summary of the patients hospitalization. For complete details of the hospital course, refer to the medical records. DISCHARGE CONDITION Stable/good. DIET Low sodium. ACTIVITIES As tolerated front-wheeled walker for assistance. MEDICATIONS Lipitor 40 mg q.h.s. Coreg 3.125 mg b.i.d. Clonazepam 0.125 mg one to two tablets daily. Dicyclomine 10 mg t.i.d. Lomotil one to two q.6h. p.r.n. Famotidine 10 mg daily. Remicade one vial every six to eight weeks. Mesalamine 800 mg b.i.d. ProAmatine 15 mg b.i.d. Sotalol 80 mg b.i.d. Tramadol 50 mg b.i.d. FOLLOWUP 1. The patient will follow with Dr. Hurd in one week for medical reevaluation. 2. Patient will continue her outpatient psychiatric followup. INSTRUCTION TO PATIENT The patient was instructed on her diagnosis and treatments provided. We encouraged her to be adherent with medications. Encouraged her on a healthy well-rounded diet and activity. She will watch for temperature greater than 100.4. She will watch for chest pressures or pain. Should these or other problems or need occur, she can be in contact with her primary provider. If symptoms come quite dire she can present to emergency room for acute evaluation. She voiced understanding of the above. Time spent with discharge greater than 35 minutes. JAVED
[2017-01-22 00:42] LABS: IRON 61 UG/DL (37-170)
[2017-01-22 00:51] LABS: IRON % SAT (TRANSF %SAT)(CALC) 18 % (9-55); TOTAL IRON BINDING CAPACITY 335 UG/DL (261-497)
[2017-01-22 03:14] LABS: FOLATE > 20.0 NG/ML (2.76-20); VITAMIN B12 - BATCH 194 PG/ML (239-931)
== END 2017-01-20 13:55 | disposition home or self-care (01) ==
LOC: ED 23:26 → EDHOLD 01-19 02:01 → MED 01-19 02:30
PROVIDERS: ADMIT Hospitalist; ATTEND Internal Medicine
DX: T43.592A Poisoning by other antipsychotics and neuroleptics, intentional self-harm, initial encounter (principal); T42.4X2A Poisoning by benzodiazepines, intentional self-harm, initial encounter; G92 Toxic encephalopathy; Y92.018 Other place in single-family (private) house as the place of occurrence of the external cause; F32.9 Major depressive disorder, single episode, unspecified; I42.9 Cardiomyopathy, unspecified; I48.91 Unspecified atrial fibrillation; Z95.3 Presence of xenogenic heart valve; D72.829 Elevated white blood cell count, unspecified; D64.9 Anemia, unspecified; I10 Essential (primary) hypertension; E78.5 Hyperlipidemia, unspecified; R26.89 Other abnormalities of gait and mobility; K50.90 Crohn's disease, unspecified, without complications; F17.210 Nicotine dependence, cigarettes, uncomplicated; F41.9 Anxiety disorder, unspecified; Z79.899 Other long term (current) drug therapy; Z95.0 Presence of cardiac pacemaker; Z73.6 Limitation of activities due to disability
CPT/HCPCS: 36415; 80048; 80053; 80306; 80307; 81001; 82607; 82746; 83540; 83550; 84443; 85025; 87081; 87430; 93005; 96361; 96374; 96375; 96376; 97161; 99284; 99406; A9270; C9113; G0378; G8978; G8979; J2405; J7030; 99218

== ENCOUNTER 2017-10-09 03:57 | Inpatient (IN) ==
[2017-10-09] MEDS ORDERED: NS 1,000 ML IV ONE (04:11)
--- NOTE | 2017-10-09 04:11 | Emergency Department Report ---
General Adult HPI - General Stated complaint: pneumonia <Brian Mejia 10/09/17 04:11> Time Seen by Provider: 10/09/17 04:09 <Brian Mejia 10/09/17 04:11> Source: patient, EMS <Brian Mejia 10/09/17 04:25> Mode of arrival: EMS <Brian Mejia 10/09/17 04:25> Limitations: no limitations <Brian Mejia 10/09/17 04:25> - History of Present Illness HPI narrative: 57-year-old female presents to the emergency department with a chief complaint of cough and shortness of breath. Patient noted onset of symptoms approximately one week ago. She was at home when her symptoms began. Symptoms have been persistent in nature since onset. Patient describes her cough as being productive of a yellow-green mucus. She notes generalized body aches without radiation. Body aches are moderate in nature. They're dull. Patient states that her symptoms have been gradually progressive in nature since onset. She has no other complaints or associated symptoms at this time. <Brian Mejia 10/09/17 04:25> - Related Data Home Medications Medication Instructions Recorded Confirmed Midodrine HCl 15 mg PO BID #0 11/01/11 10/09/17 Infliximab [Remicade] 100 mg IV Q6-8W #0 08/05/13 10/09/17 Carvedilol 3.125 mg PO BIDWM #0 08/21/15 10/09/17 Sotalol HCl [Sotalol] 80 mg PO BID #0 08/21/15 10/09/17 Diphenoxylate HCl/Atropine 1 - 2 tab PO Q6HPRN PRN #30 tab 07/19/16 10/09/17 [Lomotil 2.5-0.025 mg Tablet] Atorvastatin Calcium 40 mg PO DAILY #0 tab 01/19/17 10/09/17 ClonazePAM [Klonopin] 1 mg PO TID 03/13/17 10/09/17 Famotidine [Pepcid] 20 mg PO DAILY 03/13/17 10/09/17 Delzicol (Mesalamine) 400 mg 800 mg PO BID 04/10/17 10/09/17 capsule (delayed release tabs inside) Hydrocodone/Acetaminophen 1 - 2 tab PO TID PRN 05/30/17 10/09/17 [Hydrocodon-Acetaminophn 10-300] Dicyclomine [Bentyl] 10 mg PO BID 10/09/17 10/09/17 Montelukast [Singulair] 10 mg PO DAILY 10/09/17 10/09/17 hydrOXYzine HCl [Hydroxyzine HCl] 1 tab PO BID 10/09/17 10/09/17 <Brian Mejia 10/09/17 04:11> Allergies Allergy/AdvReac Type Severity Reaction Status Date / Time niacin Allergy Severe AIRWAY Verified 10/09/17 04:29 OBSTRUCTION codeine Allergy Intermediate ITCHING Verified 10/09/17 04:29 escitalopram Allergy Unknown ITCHING Verified 10/09/17 04:29 mercaptopurine Allergy Unknown Verified 10/09/17 04:29 duloxetine AdvReac Intermediate blackout Verified 10/09/17 04:29 prochlorperazine AdvReac Unknown Verified 10/09/17 04:29 quetiapine AdvReac Unknown HEART Verified 10/09/17 04:29 PALPITATIONS <Brian Mejia 10/09/17 04:11> Review of Systems Constitutional: Denies: fever, chills <Brian Mejia 10/09/17 04:25> Eyes: Denies: eye pain, vision change <Brian Mejia 10/09/17 04:25> ENT: Denies: ear pain, throat pain <Brian Mejia 10/09/17 04:25> Cardiovascular: Reports: palpitations. Denies: chest pain <Brian Mejia 04:25> Respiratory: Reports: cough, dyspnea. Denies: wheezes <Brian Mejia 04:25> Gastrointestinal: Denies: abdominal pain, nausea, vomiting, diarrhea <Brian Mejia 10/09/17 04:25> Genitourinary: Denies: urgency, dysuria <Brian Mejia 10/09/17 04:25> Musculoskeletal: Denies: back pain, arthralgia <Brian Mejia 10/09/17 04:25 > Integumentary: Denies: erythema, rash <Brian Mejia 10/09/17 04:25> Neurological: Denies: headache, numbness <Brian Mejia 10/09/17 04:25> Psychiatric: Denies: anxiety, depression <Brian Mejia 10/09/17 04:25> Endocrine: Denies: fatigue, heat or cold intolerance <Brian Mejia 04:25> Hematological/Lymphatic: Denies: easy bleeding, easy bruising, lymphadenopathy <Brian Mejia 10/09/17 04:25> Allergic/Immunologic: Denies: facial swelling, urticaria <Brian Mejia 04:25> [facility] Patient Stated Medical History Cerebrovascular Accident Yes Other HEENT Yes: WEARS GLASSES Angina Yes Cardiac Arrhythmia Yes: AFIB Coronary Artery Disease Yes Hypertension Yes Rheumatic Fever Yes Valvular Heart Disease Yes Other Cardiology Yes: "Blood clot filter" Chronic Obstructive Pulmonary Yes Disease (COPD) Pneumonia Yes Gastroesophageal Reflux Yes Disease Other GI Yes: CROHNS,IBS Hx Urinary Tract Infection Yes Other Hematologic Yes: BRUISES EASILY Osteoarthritis Yes Anesthesia Reactions Yes: WOKE UP DURING PROCEDURE Blood Transfusions Yes Depression Yes Substance Use Disorder Yes: HX OF etoh Other Behavioral Health Yes: PANIC ATTACKS Clinic Medical History (Last Reviewed 04/19/17 @ 10:21 by Nona Molina RN) Anxiety (Acute Medical) Atrial fibrillation (Acute Medical) Cataracts, bilateral (Acute Medical) Crohn disease (Acute Medical) Depression (Acute Medical) High cholesterol (Acute Medical) Pacemaker (Acute Medical) Stroke (Acute Medical) <Brian Mejia 10/09/17 04:25> Surgical History: Colon resections x 3 for crohn's. Mitral valve replacement. Pacemaker placement <Brian Mejia 10/09/17 04:11> Family History: Family History (Last Reviewed 04/19/17 @ 10:21 by Nona Molina RN) Sister Colon polyps Diabetes Maternal Aunt Breast cancer Colon cancer Maternal Grandmother Diabetes <Brian Mejia 10/09/17 04:11> - Social History Smoking status: Current every day smoker <Brian Mejia 10/09/17 04:11> Substance use type: does not use <Brian Mejia 10/09/17 04:25> Alcohol intake frequency: does not drink <Brian Mejia 10/09/17 04:25> Physical Exam - Limitations Limitations: no limitations <MejiaBrian 10/09/17 04:25> - General General appearance: alert, in no apparent distress <Brian Mejia 10/09/17 04:25> - Normal Exams: Head:: Normocephalic without trauma <Brian Mejia 10/09/17 04:25> Eyes:: Pupils are PERRLA w/ EOMI, No scleral icterus, irritation, or foreign bodies noted <Brian Mejia 10/09/17 04:25> ENMT:: No facial trauma, nasal exudates, pharyngeal erythema, or exudates are noted <Brian Mejia 10/09/17 04:25> Dental: No fractured, loose, or missing teeth noted <Brian Mejia 10/09/17 04:25> Neck:: Full range of motion, without adenopathy, JVD, bruits or thyromegaly < Brian Mejia 10/09/17 04:25> Chest/Respirations:: Clear all rowley, with good airflow, and symmetry bilaterally <Brian Mejia 10/09/17 04:25> Cardiovascular:: without murmur or gallop, Pulses 2+ all extremities ( irregularly irregular rhythm.), capillary refill, <2 seconds all extremities < Brian Mejia 10/09/17 04:25> Abdomen:: Bowel sounds positive, soft, non-tender, non-distended, no hepatosplenomegaly, masses or bruits noted <Brian Mejia 10/09/17 04:25> Lymphatic:: No lymphadenopathy, or lymphedema noted <Brian Mejia 10/09/17 04:25> Musculoskeletal:: No tenderness, or deformity noted, good range of motion, all extremities <Brian Mejia 10/09/17 04:25> Integumentary:: No rashes, hives, or bruising noted, hair and nails, without abnormality <Brian Mejia 10/09/17 04:25> Neurological:: Patient is alert, and oriented, cranial nerves, motor/sensory/ cerebellar, exams w/o gross deficits, to observation <Brian Mejia 04:25> Psychiatric:: Patient exhibits, appropriate attention, emotion and affect < Brian Mejia 10/09/17 04:25> Course - Consultations Consultation #1: Dr. Nelson: Recommends inpt admission for further eval. Can give 0.25mg digoxin for rate control. <eb 10/09/17 07:38> Time: 07:30 <10/09/17 07:38> Consultation #2: Hospitalist: Will admit for obs. <January,Leo 10/09/17 08:02> Time: 07:34 <10/09/17 07:38> Vital Signs Temperature 98.2 F 10/09/17 04:00 Pulse Rate 133 H 10/09/17 04:00 Respiratory Rate 24 10/09/17 04:00 Blood Pressure 104/82 10/09/17 04:00 Pulse Oximetry 98 10/09/17 04:00 Temperature 98.1 F 10/09/17 16:00 Pulse Rate 84 10/09/17 16:00 Respiratory Rate 18 10/09/17 16:00 Blood Pressure 116/75 10/09/17 16:00 Pulse Oximetry 95 10/09/17 16:00 <Brian Mejia 10/09/17 04:25> Medical Decision Making - MDM Narrative Medical decision making narrative: Patient care turned over to Dr. Leo Barth at 0600. Patient was given 1L NS with improvement of heart rate. Patient is still Afib with RVR and cardiazem will be ordered to help with rate control along with consultation to patient's health education assistant Dr. Nelson. Patient was ordered Cefepime 1 g IV x 1 at 0656 when sepsis was considered. Dr. Barth will follow the pending studies and treat accordingly with admission to the hospital for further evaluation and treatment. Patient was ordered Cefepime 1 g IV x 1 at 0656 when sepsis was considered. Patient was never hypotensive and never had a lactic acid greater than 4 while in the ED. <Brian Mejia 10/09/17 19:36> Pt without evidence of PE. CT results c/w bronchitis with mucoid impaction. After discussion with health education assistant regarding inpt vs outpt treatment, will contact hospitalist for admission. <JanuaryLeo - 10/09/17 08:02> - Lab Data Lab results reviewed: Yes: I reviewed the patient's lab results. <JanuaryLeo - 10/09/17 07:38> Result diagrams: 10/09/17 04:28 10/09/17 04:28 <Brian Mejia - 10/09/17 04:11> Lab Results 10/09/17 10/09/17 10/09/17 Range/Units 04:25 04:27 04:28 WBC Cancelled Corrected WBC Cancelled RBC Cancelled Hgb Cancelled Hct Cancelled MCV Cancelled MCH Cancelled MCHC Cancelled RDW Std Deviation Cancelled Plt Count Cancelled MPV Cancelled Immature Gran % (Auto) Cancelled Neut % (Auto) Cancelled Lymph % (Auto) Cancelled [place] % (Auto) Cancelled Eos % (Auto) Cancelled Baso % (Auto) Cancelled Neut # (Auto) Cancelled Lymph # (Auto) Cancelled [place] # (Auto) Cancelled Eos # (Auto) Cancelled Baso # (Auto) Cancelled Abs Immat Gran (auto) Cancelled Neutrophils % (Manual) Cancelled Band Neutrophils % Cancelled Lymphocytes % (Manual) Cancelled Reactive Lymphs % Cancelled Monocytes % (Manual) Cancelled Eosinophils % (Manual) Cancelled Basophils % (Manual) Cancelled Metamyelocytes % Cancelled Myelocytes % Cancelled Promyelocytes % Cancelled Blast Cells % Cancelled Neutrophils # (Manual) Cancelled Band Neutrophils # Cancelled Lymphocytes # (Manual) Cancelled Abs React Lymphs (Man) Cancelled Monocytes # (Manual) Cancelled Eosinophils # (Manual) Cancelled Basophils # (Manual) Cancelled Metamyelocytes # Cancelled Myelocytes # Cancelled Promyelocytes # Cancelled Plasma Cell # (Manual) Cancelled Nucleated RBCs Cancelled Hypersegmented Neuts Cancelled Hyposegmented Neuts Cancelled Hypogranular Neuts Cancelled Prolymphocytes Cancelled Blast Cells # Cancelled Plasma Cells Cancelled Smudge Cells Cancelled Toxic Granulation Cancelled Toxic Vacuolation Cancelled Dohle Bodies Cancelled Miriam Rods Cancelled Clumped Platelets Cancelled Giant Platelets Cancelled Dimorphic RBCs Cancelled Polychromasia Cancelled Hypochromasia Cancelled Poikilocytosis Cancelled Basophilic Stippling Cancelled Anisocytosis Cancelled Microcytosis Cancelled Macrocytosis Cancelled Spherocytes Cancelled Pappenheimer Bodies Cancelled Sickle Cells Cancelled Target Cells Cancelled Tear Drop Cells Cancelled Ovalocytes Cancelled Stomatocytes Cancelled Helmet Cells Cancelled Evans-Dyer Bodies Cancelled Wesley Rings Cancelled Chrissie Cells Cancelled Crenated Cell Cancelled Acanthocytes (Spur) Cancelled Rouleaux Cancelled Schistocytes Cancelled RBC Morph Comment Cancelled Turbidity (0-20) Sodium (134-144) MEQ/L Potassium (3.6-5) MEQ/L Chloride (98-107) MEQ/L Carbon Dioxide (22-30) MEQ/L Anion Gap (5-15) MEQ/L BUN (7-17) MG/DL Creatinine (0.7-1.2) MG/DL GFR Calculation BUN/Creatinine Ratio (6-26) RATIO Glucose (65-110) MG/DL Calculated Osmolality (261-280) MOSM/KG Calcium (8.4-10.2) MG/DL Magnesium (1.6-2.3) MG/DL Total Bilirubin (0.20-1.30) MG/DL Icterus Index (0-7) AST (14-36) U/L ALT (9-52) U/L Alkaline Phosphatase (38-126) U/L Troponin I (0-0.12) ng/ml Total Protein (6.3-8.2) G/DL Albumin (3.5-5.0) G/DL Globulin (2.4-3.6) G/DL Albumin/Globulin Ratio (1.1-2.2) RATIO Plasma Lactate (0.6-2.2) MMOL/L Procalcitonin < 0.05 NG/ML TSH (0.47-4.68) MIU/L Specimen Hemolysis (0-25) Ur Collection Type Urine Color (YELLOW) Urine Clarity Urine pH (5.0-8.0) Ur Specific [place] (1.015-1.025) Urine Protein (NEGATIVE) Urine Glucose (UA) (NEGATIVE) Urine Ketones (NEGATIVE) Urine Occult Blood (NEGATIVE) Urine Nitrate (NEGATIVE) Urine Bilirubin (NEGATIVE) Urine Urobilinogen (NORMAL) EU/DL Ur Leukocyte Esterase (NEGATIVE) Urine RBC (0-3) /HPF Urine WBC (0-5) /HPF Ur Squamous Epith Cells Urine Bacteria (NEGATIVE) Ur Culture Indicated? Influenza Type A (PCR) Negative (Negative) Influenza Type B (PCR) Negative (Negative) 10/09/17 10/09/17 10/09/17 Range/Units 04:28 04:28 04:28 WBC 12.1 H Corrected WBC RBC 5.01 Hgb 14.8 Hct 43.8 MCV 87.4 MCH 29.5 MCHC 33.8 RDW Std Deviation 42.3 Plt Count 345 MPV 9.6 Immature Gran % (Auto) 0.2 Neut % (Auto) 64.9 Lymph % (Auto) 25.0 [place] % (Auto) 8.9 Eos % (Auto) 0.5 Baso % (Auto) 0.5 Neut # (Auto) 7.9 H Lymph # (Auto) 3.0 [place] # (Auto) 1.1 H Eos # (Auto) 0.1 Baso # (Auto) 0.1 Abs Immat Gran (auto) 0.02 Neutrophils % (Manual) Band Neutrophils % Lymphocytes % (Manual) Reactive Lymphs % Monocytes % (Manual) Eosinophils % (Manual) Basophils % (Manual) Metamyelocytes % Myelocytes % Promyelocytes % Blast Cells % Neutrophils # (Manual) Band Neutrophils # Lymphocytes # (Manual) Abs React Lymphs (Man) Monocytes # (Manual) Eosinophils # (Manual) Basophils # (Manual) Metamyelocytes # Myelocytes # Promyelocytes # Plasma Cell # (Manual) Nucleated RBCs Hypersegmented Neuts Hyposegmented Neuts Hypogranular Neuts Prolymphocytes Blast Cells # Plasma Cells Smudge Cells Toxic Granulation Toxic Vacuolation Dohle Bodies Miriam Rods Clumped Platelets Giant Platelets Dimorphic RBCs Polychromasia Hypochromasia Poikilocytosis Basophilic Stippling Anisocytosis Microcytosis Macrocytosis Spherocytes Pappenheimer Bodies Sickle Cells Target Cells Tear Drop Cells Ovalocytes Stomatocytes Helmet Cells Evans-Dyer Bodies Wesley Rings Chrissie Cells Crenated Cell Acanthocytes (Spur) Rouleaux Schistocytes RBC Morph Comment Turbidity < 20 (0-20) Sodium 143 (134-144) MEQ/L Potassium 3.3 L (3.6-5) MEQ/L Chloride 109 H (98-107) MEQ/L Carbon Dioxide 19 L (22-30) MEQ/L Anion Gap 15 (5-15) MEQ/L BUN 17.0 (7-17) MG/DL Creatinine 0.8 (0.7-1.2) MG/DL GFR Calculation 73 BUN/Creatinine Ratio 21 (6-26) RATIO Glucose 111 H (65-110) MG/DL Calculated Osmolality 278 (261-280) MOSM/KG Calcium 10.5 H (8.4-10.2) MG/DL Magnesium 1.6 (1.6-2.3) MG/DL Total Bilirubin 0.90 (0.20-1.30) MG/DL Icterus Index < 2 (0-7) AST 24 (14-36) U/L ALT 25 (9-52) U/L Alkaline Phosphatase 130 H (38-126) U/L Troponin I < 0.012 (0-0.12) ng/ml Total Protein 9.2 H (6.3-8.2) G/DL Albumin 5.3 H (3.5-5.0) G/DL Globulin 3.9 H (2.4-3.6) G/DL Albumin/Globulin Ratio 1.4 (1.1-2.2) RATIO Plasma Lactate 2.4 H (0.6-2.2) MMOL/L Procalcitonin NG/ML TSH 2.05 (0.47-4.68) MIU/L Specimen Hemolysis < 15 (0-25) Ur Collection Type Urine Color (YELLOW) Urine Clarity Urine pH (5.0-8.0) Ur Specific [place] (1.015-1.025) Urine Protein (NEGATIVE) Urine Glucose (UA) (NEGATIVE) Urine Ketones (NEGATIVE) Urine Occult Blood (NEGATIVE) Urine Nitrate (NEGATIVE) Urine Bilirubin (NEGATIVE) Urine Urobilinogen (NORMAL) EU/DL Ur Leukocyte Esterase (NEGATIVE) Urine RBC (0-3) /HPF Urine WBC (0-5) /HPF Ur Squamous Epith Cells Urine Bacteria (NEGATIVE) Ur Culture Indicated? Influenza Type A (PCR) (Negative) Influenza Type B (PCR) (Negative) 10/09/17 Range/Units 05:42 WBC Corrected WBC RBC Hgb Hct MCV MCH MCHC RDW Std Deviation Plt Count MPV Immature Gran % (Auto) Neut % (Auto) Lymph % (Auto) [place] % (Auto) Eos % (Auto) Baso % (Auto) Neut # (Auto) Lymph # (Auto) [place] # (Auto) Eos # (Auto) Baso # (Auto) Abs Immat Gran (auto) Neutrophils % (Manual) Band Neutrophils % Lymphocytes % (Manual) Reactive Lymphs % Monocytes % (Manual) Eosinophils % (Manual) Basophils % (Manual) Metamyelocytes % Myelocytes % Promyelocytes % Blast Cells % Neutrophils # (Manual) Band Neutrophils # Lymphocytes # (Manual) Abs React Lymphs (Man) Monocytes # (Manual) Eosinophils # (Manual) Basophils # (Manual) Metamyelocytes # Myelocytes # Promyelocytes # Plasma Cell # (Manual) Nucleated RBCs Hypersegmented Neuts Hyposegmented Neuts Hypogranular Neuts Prolymphocytes Blast Cells # Plasma Cells Smudge Cells Toxic Granulation Toxic Vacuolation Dohle Bodies Miriam Rods Clumped Platelets Giant Platelets Dimorphic RBCs Polychromasia Hypochromasia Poikilocytosis Basophilic Stippling Anisocytosis Microcytosis Macrocytosis Spherocytes Pappenheimer Bodies Sickle Cells Target Cells Tear Drop Cells Ovalocytes Stomatocytes Helmet Cells Evans-Dyer Bodies Wesley Rings [place] Cells Crenated Cell Acanthocytes (Spur) Rouleaux Schistocytes RBC Morph Comment Turbidity (0-20) Sodium (134-144) MEQ/L Potassium (3.6-5) MEQ/L Chloride (98-107) MEQ/L Carbon Dioxide (22-30) MEQ/L Anion Gap (5-15) MEQ/L BUN (7-17) MG/DL Creatinine (0.7-1.2) MG/DL GFR Calculation BUN/Creatinine Ratio (6-26) RATIO Glucose (65-110) MG/DL Calculated Osmolality (261-280) MOSM/KG Calcium (8.4-10.2) MG/DL Magnesium (1.6-2.3) MG/DL Total Bilirubin (0.20-1.30) MG/DL Icterus Index (0-7) AST (14-36) U/L ALT (9-52) U/L Alkaline Phosphatase (38-126) U/L Troponin I (0-0.12) ng/ml Total Protein (6.3-8.2) G/DL Albumin (3.5-5.0) G/DL Globulin (2.4-3.6) G/DL Albumin/Globulin Ratio (1.1-2.2) RATIO Plasma Lactate (0.6-2.2) MMOL/L Procalcitonin NG/ML TSH (0.47-4.68) MIU/L Specimen Hemolysis (0-25) Ur Collection Type Urine, clean catch Urine Color Yellow (YELLOW) Urine Clarity Cloudy Urine pH 5.5 (5.0-8.0) Ur Specific [place] 1.025 (1.015-1.025) Urine Protein Trace A (NEGATIVE) Urine Glucose (UA) Negative (NEGATIVE) Urine Ketones 1+ A (NEGATIVE) Urine Occult Blood Trace-intact (NEGATIVE) Urine Nitrate Negative (NEGATIVE) Urine Bilirubin 1+ A (NEGATIVE) Urine Urobilinogen 0.2 (NORMAL) EU/DL Ur Leukocyte Esterase 2+ A (NEGATIVE) Urine RBC None seen (0-3) /HPF Urine WBC 50-200 H (0-5) /HPF Ur Squamous Epith Cells 10-20 Urine Bacteria Trace H (NEGATIVE) Ur Culture Indicated? Cult not indicated Influenza Type A (PCR) (Negative) Influenza Type B (PCR) (Negative) <Brian Mejia 10/09/17 04:25> - Radiology Data Radiology results reviewed: Yes: I reviewed the patient's radiology results. < 10/09/17 07:38> CT-PA: FINDINGS: PULMONARY ARTERIES: No pulmonary embolism detected. AORTA: No acute process detected. No thoracic aortic aneurysm. LUNGS: There is mucoid impaction and lower lung bronchi. There is bronchial wall thickening. No mass. PLEURAL SPACE: Unremarkable. No significant effusion. No pneumothorax. HEART: There is cardiomegaly. BONES/JOINTS: No acute fracture. No dislocation. SOFT TISSUES: Unremarkable. LYMPH NODES: Unremarkable. No enlarged lymph nodes. TUBES, LINES AND DEVICES: Right chest wall Port-A-Cath area OTHER FINDINGS: There is evidence of prior granulomatous disease. IMPRESSION: 1. There is mucoid impaction and lower lung bronchi. 2. Evidence of bronchitis or reactive airways disease. 3. Incidental/non-acute findings are described above. <January,Leo 10/09/17 07:38> - EKG Data EKG #1 EKG results narrative: Atrial fibrillation with RVR. 109 bpm. No STEMI. <Brian Mejia 10/09/17 05:22> Disposition Clinical Impression: Bronchitis, Mucoid impaction of bronchi, Atrial fibrillation with RVR <Brian Mejia 10/09/17 19:39> Disposition: 02 To OBS [facility] [place] <Brian Mejia 10/09/17 19:39> Print Language: Prydeinig <Brian Mejia 10/09/17 19:39> Condition: Improved <Brian Mejia 10/09/17 19:39> Instructions: <Brian Mejia 10/09/17 04:11> Prescriptions: No Action Midodrine HCl 15 mg PO BID #0 Sotalol HCl [Sotalol] 80 mg PO BID #0 Atorvastatin Calcium 40 mg PO DAILY #0 tab Famotidine [Pepcid] 20 mg PO DAILY Hydrocodone/Acetaminophen [Hydrocodon-Acetaminophn 10-300] 1 - 2 tab PO TID PRN PRN Reason: Pain Montelukast [Singulair] 10 mg PO DAILY Dicyclomine [Bentyl] 10 mg PO BID hydrOXYzine HCl [Hydroxyzine HCl] 1 tab PO BID Infliximab [Remicade] 100 mg IV Q6-8W #0 Carvedilol 3.125 mg PO BIDWM #0 Diphenoxylate HCl/Atropine [Lomotil 2.5-0.025 mg Tablet] 1 - 2 tab PO Q6HPRN PRN #30 tab PRN Reason: Diarrhea ClonazePAM [Klonopin] 1 mg PO TID Delzicol (Mesalamine) 400 mg capsule (delayed release tabs inside) 800 mg PO BID <Brian Mejia 10/09/17 04:11> Referrals: Randall Hurd MD [Family Provider] - <Brian Mejia 10/09/17 04:11> Forms: <Brian Mejia 10/09/17 04:11> Time of Disposition: 08:01 <JanuaryLeo 10/09/17 08:02> - Seen By: physician <JanuaryLeo 10/09/17 08:02>
--- OUTSIDE RECORDS SUMMARY | 2017-10-09 04:16 | External Medical Summary ---
:1960 Author Organization [employer] Care Team Providers Name Role Phone Conchis Luna Provider Role Unavailable Allergies No Known Allergies Problems No Known Problems Medications No Known Medications Results No Known Results Summary Purpose [employer] Submission
[2017-10-09] MEDS: SALINE FLUSH 10ml SYRINGE IVF PRN ×2 (04:21→06:13)
[2017-10-09] MEDS ORDERED: IOHEXOL 350mg/ml 50ml INJECTION ONE (06:05)
[2017-10-09] MEDS ORDERED: NS 100 ML ONE (06:06)
[2017-10-09] MEDS ORDERED: SALINE FLUSH 10ml SYRINGE ONE (06:06)
[2017-10-09] MEDS ORDERED: DiltiaZEM 25 MG/5 ML INJECTION IVP ONE (06:09)
[2017-10-09] MEDS ORDERED: CEFEPIME 1 GM in NS 100 ML IV ONE (06:56)
[2017-10-09] MEDS ORDERED: ALBUTEROL/IPRATROPIUM 2.5mg-0.5mg/3ml NEB AEROSOL ONE (07:26)
[2017-10-09] MEDS ORDERED: DIGOXIN 500 MCG/2 ML INJECTION IVP ONE (07:33)
--- NOTE | 2017-10-09 07:54 | CT Scan Report ---
Indication: sob PROCEDURE: CT angio pulm emboli: Encounter: Initial Comparison: None Technique: Axial CT pulmonary angiographic phase images were performed through the chest after the administration of intravenous contrast. Coronal and Sagittal MIP reconstructed images were created and reviewed. Automated Exposure Control and Iterative Reconstruction dose reducing techniques were utilized. Contrast: Omnipaque 350 49 mL Findings: Pulmonary arteries: Exam is diagnostic to the subsegmental pulmonary arterial level. There are no filling defects identified to suggest a pulmonary embolus. Other findings: Calcified granulomas. No focal consolidative pneumonia. No pleural effusion or pneumothorax. The central airways are patent. There is some bronchial wall thickening in the right lower lobe with mucous plugging. No axillary or mediastinal adenopathy. Heart size is normal. No pericardial effusion. The upper abdomen shows no acute findings. Impression: No pulmonary embolus. Mucus plugging within lower lobe bronchi could represent minor aspiration event or infection. There is a preliminary report by virtual radiologic. .
--- NOTE | 2017-10-09 07:59 | XRay Report ---
Indication: cough PROCEDURE: XR chest 1V: Encounter: Initial Comparison: January 18, 2016 Findings: The lungs are stable in appearance without new focal airspace consolidation. There is no pleural effusion or pneumothorax. The heart size, pulmonary vascularity and mediastinal contours are unchanged. Prior CABG. Left pacemaker. Right IJ port. Calcified granulomas. IMPRESSION: Stable appearance of the chest without acute cardiopulmonary disease. .
[2017-10-09 08:36] VITALS: BMI 21.5
--- NOTE | 2017-10-09 09:12 | History & Physical Report ---
History of Present Illness Date: 10/09/17 Chief complaint: shortness of breath, cough, "heart felt like it was going to stop." HPI: Patient is a 57-year-old female who called EMS at 3 AM because she felt like her heart was going to stop and was having trouble breathing. She has had cough and shortness of breath for the last week. She initially felt like she had a respiratory illness, but when she started feeling like her heart was going to stop, this prompted her to call EMS. She states she has had symptoms like this in the past, but they've never been this pronounced or lasted this long. States her symptoms are worsening. She's coughing up very thick green mucus. In the emergency room she was found to be in A. fib with RVR heart rate 109. Her CTA chest was negative for pulmonary embolism but did show mucoid impaction in the lower lung bronchi. Chest x-ray was negative. Troponin was negative. She was given 10 mg Cardizem around 6 AM, and converted to normal sinus rhythm sometime after that was given. She was also treated with DuoNeb aerosol, given cefepime 1 g at 8:15 AM and has had 1000 mL of normal saline infused. Patient seen lying in her bed. She reports at this time she is short of breath with conversation, has no chest pain, no longer feels like her "heart is going to stop." She is fatigued, weak and achy. She's not been eating much. She did have some nausea and vomiting yesterday but none today. She does appear depressed. When discussing her DPOA-H, she states she has no family or friends. She does wish to be a DO NOT RESUSCITATE. She does have a lady at [facility], Ailyn Arteaga, who she would appoint to be her DPOA-H. Review of Systems All systems PM: 10-point ROS was reviewed, no additional remarkable complaints except (weak, generalized achiness, shortness of breath, cough, nausea and vomiting yesterday, none today.) Past Medical History Medical History Crohn's disease Hyperlipidemia HTN Paroxysmal atrial fibrillation - no anticoagulation d/t bleeding on warfarin with Crohn's Artificial mitral valve-(tissue) Pacemaker Depression/anxiety History of stroke GERD Surgical History: Colon resections x 3 for crohn's. Mitral valve replacement - tissue (2009). Pacemaker placement (2009) Family History: Family History Sister Colon polyps Diabetes Maternal Aunt Breast cancer Colon cancer Maternal Grandmother Diabetes Family History Updates: Updated - Social History Smoking status: Current every day smoker (1/2 ppd. States she has been cutting down. Has smoked since her 20[age] Substance use type: does not use Alcohol intake: former Housing: other ([facility]) Household members: none Current occupational status: disabled (d/t Cronhn's since 2000) Social history: PCP-Dr. Randall Hurd [facility]-Dr. Nelson [employer]-Dr. Chandler Medications Home Medications Medication Instructions Recorded Confirmed Type Midodrine HCl 15 mg PO BID #0 11/01/11 10/09/17 History Infliximab [Remicade] 100 mg IV Q6-8W #0 08/05/13 10/09/17 History Carvedilol 3.125 mg PO BIDWM #0 08/21/15 10/09/17 History Sotalol HCl [Sotalol] 80 mg PO BID #0 08/21/15 10/09/17 History Diphenoxylate HCl/Atropine 1 - 2 tab PO Q6HPRN PRN #30 tab 07/19/16 10/09/17 History [Lomotil 2.5-0.025 mg Tablet] Atorvastatin Calcium 40 mg PO DAILY #0 tab 01/19/17 10/09/17 History ClonazePAM [Klonopin] 1 mg PO TID 03/13/17 10/09/17 History Famotidine [Pepcid] 20 mg PO DAILY 03/13/17 10/09/17 History Delzicol (Mesalamine) 400 mg 800 mg PO BID 04/10/17 10/09/17 History capsule (delayed release tabs inside) Hydrocodone/Acetaminophen 1 - 2 tab PO TID PRN 05/30/17 10/09/17 History [Hydrocodon-Acetaminophn 10-300] Dicyclomine [Bentyl] 10 mg PO BID 10/09/17 10/09/17 History Montelukast [Singulair] 10 mg PO DAILY 10/09/17 10/09/17 History hydrOXYzine HCl [Hydroxyzine HCl] 1 tab PO BID 10/09/17 10/09/17 History Allergies Allergy/AdvReac Type Severity Reaction Status Date / Time niacin Allergy Severe AIRWAY Verified 10/09/17 04:29 OBSTRUCTION codeine Allergy Intermediate ITCHING Verified 10/09/17 04:29 escitalopram Allergy Unknown ITCHING Verified 10/09/17 04:29 mercaptopurine Allergy Unknown Verified 10/09/17 04:29 duloxetine AdvReac Intermediate blackout Verified 10/09/17 04:29 prochlorperazine AdvReac Unknown Verified 10/09/17 04:29 quetiapine AdvReac Unknown HEART Verified 10/09/17 04:29 PALPITATIONS Exam Vital Signs: Temperature 96.8 F 10/09/17 08:21 Pulse Rate 81 10/09/17 08:21 Respiratory Rate 18 10/09/17 08:21 Blood Pressure 117/76 10/09/17 08:21 Pulse Oximetry 100 10/09/17 08:21 Height/Weight/BMI: Height 1.63 m Weight 57 kg Body Mass Index 21.5 - Constitutional Present: no acute distress, well nourished, well developed - Routine HEENT Exam Head: Present: normocephalic, atraumatic Eye: Present: EOMI, PERRL ENT: Present: mucous membranes moist, oropharynx clear, nares patent - Routine Neck Exam Present: supple. Absent: lymphadenopathy, thyromegaly - Routine Respiratory Exam Present: dyspnea, CTA bilaterally. Absent: wheezes - Routine Cardiovascular Exam Present: RRR, murmur - Routine Abdominal Exam Present: soft, normoactive bowel sounds, non distended. Absent: tenderness - Routine Extremities Exam Present: no edema, normal capillary refill - Routine Skin Exam Present: dry, warm - Routine Neurological Exam Present: alert, oriented X3, CN II-XII intact - Routine Psychiatric Exam Present: cooperative, depressed. Absent: normal affect (flat affect) - Additional findings Additional findings: Jqyw-O-Sfas-right chest Results - Labs CBC & Chem 7: 10/09/17 04:28 10/09/17 04:28 Labs: Laboratory Tests 10/09/17 10/09/17 10/09/17 04:27 04:28 08:30 AST 24 ALT 25 Alkaline Phosphatase 130 H Troponin I < 0.012 Plasma Lactate 2.4 H 0.9 Procalcitonin < 0.05 Urinalysis 10/09/17 05:42 Ur Collection Type Urine, clean catch Urine Color Yellow Urine Clarity Cloudy Urine pH 5.5 Ur Specific [place] 1.025 Urine Protein Trace A Urine Glucose (UA) Negative Urine Ketones 1+ A Urine Occult Blood Trace-intact Urine Nitrate Negative Urine Bilirubin 1+ A Urine Urobilinogen 0.2 Ur Leukocyte Esterase 2+ A Urine RBC None seen Urine WBC 50-200 H Ur Squamous Epith Cells 10-20 Urine Bacteria Trace H Ur Culture Indicated? Cult not indicated Influenza A and B-neg. Full respiratory panel pending. - ECG Data Tracing #1 A. fib with aVR-109. No STEMI - Imaging and Cardiology CTA chest Additional comments: Date of Exam: 10/09/17 Indication: sob PROCEDURE: CT angio pulm emboli: Findings: Pulmonary arteries: Exam is diagnostic to the subsegmental pulmonary arterial level. There are no filling defects identified to suggest a pulmonary embolus. Other findings: Calcified granulomas. No focal consolidative pneumonia. No pleural effusion or pneumothorax. The central airways are patent. There is some bronchial wall thickening in the right lower lobe with mucous plugging. No axillary or mediastinal adenopathy. Heart size is normal. No pericardial effusion. The upper abdomen shows no acute findings. Impression: No pulmonary embolus. Mucus plugging within lower lobe bronchi could represent minor aspiration event or infection. Chest x-ray Additional comments: Date of Exam: 10/09/17 Indication: cough PROCEDURE: XR chest 1V: Findings: The lungs are stable in appearance without new focal airspace consolidation. There is no pleural effusion or pneumothorax. The heart size, pulmonary vascularity and mediastinal contours are unchanged. Prior CABG. Left pacemaker. Right IJ port. Calcified granulomas. IMPRESSION: Stable appearance of the chest without acute cardiopulmonary disease. Assessment and Plan (1) Atrial fibrillation with RVR Current visit: Yes Status: Acute (2) Bronchitis Current visit: Yes Status: Acute (3) Mucoid impaction of bronchi Current visit: Yes Status: Acute Assessment and Plan: Assessment Atrial fibrillation with RVR-converted in the ED following Cardizem IV (not on chronic anticoagulation d/t Crohn's, but has filter) Bronchitis with mucoid impaction of the lower lung bronchi Hypokalemia-POA (K+3.3) Leukocytosis-POA Crohn's disease Hyperlipidemia HTN Artificial mitral valve-(tissue) Pacemaker Depression/anxiety History of stroke GERD Plan Admit to the hospitalist service for observation with consultation to cardiology (Dr. Nelson). Dr. Nickerson attending. Patient given Cardizem in the ER with conversion to normal sinus rhythm. Anticoagulation and antiarrhythmic recommendations per cardiology. DuoNeb's, Pulmicort, Acapella, and guaifenesin for respiratory symptoms. Hold off on antibiotics at this point. No infiltrate on imaging. Respiratory panel still pending. Sputum culture ordered. Replace potassium 40 mEq by mouth 1. BMP in a.m. Respiratory consult for tobacco cessation. Nicotine patch. IV fluids-normal saline to run at 100 cc per hour until she is taking by mouth well. Speech therapy consult for swallowing evaluation. Resume most home medications. Dr. Nickerson to review those home medications not addressed on initial admission orders. SCD's for VTE prophylaxis. Patient requests DO NOT RESUSCITATE CODE STATUS. Care to return to Dr. Randall Hurd, patient's PCP, on dismissal. DVT Prophylaxis: SCD's Resuscitation Status: Do Not Resuscitate - Physician Narrative Physician: Linh Nickerson MD Narrative: Date: 10/09/17 Time: 2134 I have independently evaluated and examined this patient. I reviewed the chart, the patient's history, and the LATH TIER/PA's documented findings as above. We discussed and formulated the assessment and plan as above with additions as below: Mrs. Durand was seen earlier today. She reports having had a bad cough for several days with some purulent sputum and dyspnea. She's had palpitations off and on with marked worsening early today as noted. At present her primary complaint is of fatigue. She's remained in sinus rhythm since converting this morning in the emergency room. The patient is alert but appears fatigued/depressed. Respirations are nonlabored with decreased airflow, breath sounds are clear; cough is very coarse but nonproductive while I was present. Cardiac rhythm is regular with normal S1 and S2, there is very soft murmur along the left sternal border Abdomen is soft and nontender, bowel sounds diminished Extremities without edema Portable chest x-ray reviewed by myself-unremarkable CTA also reviewed by myself and without focal changes in the lungs; radiology notes mucus plugging in the lower lobes. No pulmonary emboli. EKGs reviewed with the initial 12-lead in the ER demonstrating atrial fibrillation with a rate of 109, no acute ST/T-wave changes although diffuse T- wave flattening was present. Second twelve-lead revealed sinus rhythm and a rate of 76 with persistent T-wave flattening and some jamie-lateral T-wave inversion. Respiratory viral panel positive for rhinovirus Sputum culture pending In addition to above diagnoses please add: #1 rhinovirus URI Mucinex added that dose 600 mg twice a day to help with secretion management; sputum culture has been sent to the lab but not yet processed-although viral infection likely because of respiratory symptoms the patient is immune suppressed and if Gram stain suggestive of bacterial process antibiotics will be resumed in the morning. May require hypertonic saline with breathing treatments due to sputum plugging described on CT; acapella valve to be tried by RT to help mobilize secretions. Hospital Course Summary Disclaimer: The visit summary below is not to be considered part of the above Progress Note. Hospital Course: Assessment Atrial fibrillation with RVR-converted in the ED following Cardizem IV (not on chronic anticoagulation d/t Crohn's, but has filter) Bronchitis with mucoid impaction of the lower lung bronchi Hypokalemia-POA (K+3.3) Leukocytosis-POA Crohn's disease HTN Hyperlipidemia Artificial mitral valve-(tissue) Pacemaker Depression/anxiety History of stroke GERD 10/09/17 Admit to the hospitalist service for observation with consultation to cardiology (Dr. Nelson). Dr. Nickerson attending. Patient given Cardizem in the ER with conversion to normal sinus rhythm. Anticoagulation and antiarrhythmic recommendations per cardiology. DuoNeb's, Pulmicort, Acapella, and guaifenesin for respiratory symptoms. Hold off on antibiotics at this point. No infiltrate on imaging. Respiratory panel still pending. Sputum culture ordered. Replace potassium 40 mEq by mouth 1. BMP in a.m. Respiratory consult for tobacco cessation. Nicotine patch. IV fluids-normal saline to run at 100 cc per hour until she is taking by mouth well. Speech therapy consult for swallowing evaluation. Resume most home medications. Dr. Nickerson to review those home medications not addressed on initial admission orders. SCD's for VTE prophylaxis. Patient requests DO NOT RESUSCITATE CODE STATUS. Care to return to Dr. Randall Hurd, patient's PCP, on dismissal.
[2017-10-09] MEDS: NS 1,000 ML IV SCH ×2 (11:00→20:47)
[2017-10-09] MEDS: NICOTINE 14 MG PATCH TD SCH (11:05)
--- NOTE | 2017-10-09 11:08 | Cardiology Consult Note ---
<Alyssa Ramirez - Last Filed: 10/09/17 14:46> History of Present Illness Consult date: 10/09/17 Requesting physician: Linh Nickerson Consult reason: atrial fibrillation Chief complaint: palpitations History of present illness: Viktor is a 57-year-old female who is known to Dr. Nelson with a history of PAF , tissue mitral valve replacement and Biotronik PPM who called EMS at 3 AM because she felt like her heart was going to stop and was having trouble breathing. She has had cough and shortness of breath for the last week. She initially felt like she had a respiratory illness, but when she started feeling like her heart was going to stop, this prompted her to call EMS. She states she has had symptoms like this in the past, but they've never been this pronounced or lasted this long. States her symptoms are worsening. She's coughing up very thick green mucus. In the ED she was found to be in A. fib with RVR heart rate 109. Her CTA chest was negative for pulmonary embolism but did show mucoid impaction in the lower lung bronchi. Chest x-ray was negative. Troponin was negative. She was given 10 mg Cardizem around 6 AM, and converted to normal sinus rhythm sometime after that was given. She was also treated with DuoNeb aerosol, given cefepime 1 g at 8:15 AM and has had 1000 mL of normal saline infused. She is examined in her room on Medical. She denies chest pain and no longer feels like her "heart is going to stop." She reports fatigued and weakness. She does wish to be a DO NOT RESUSCITATE. Review of Systems - Constitutional Constitutional: Present: fatigue, weakness. Absent: chills, fever(s) - EENMT Eyes: Absent: change in vision Balance: Absent: vertigo Mouth/Throat: Absent: sore throat PFSH Patient Stated Medical History Cerebrovascular Accident Yes Other HEENT Yes: WEARS GLASSES Angina Yes Cardiac Arrhythmia Yes: AFIB Coronary Artery Disease Yes Hypertension Yes Rheumatic Fever Yes Valvular Heart Disease Yes Other Cardiology Yes: "Blood clot filter" top of heart Chronic Obstructive Pulmonary Yes Disease (COPD) Pneumonia Yes Gastroesophageal Reflux Yes Disease Other GI Yes: CROHNS,IBS Hx Urinary Tract Infection Yes Other Hematologic Yes: BRUISES EASILY Osteoarthritis Yes Anesthesia Reactions Yes: WOKE UP DURING PROCEDURE Blood Transfusions Yes Depression Yes Substance Use Disorder Yes: HX OF etoh Other Behavioral Health Yes: PANIC ATTACKS Clinic Medical History (Last Reviewed 04/19/17 @ 10:21 by Nona Molina RN) Anxiety (Acute Medical) Atrial fibrillation (Acute Medical) Cataracts, bilateral (Acute Medical) Crohn disease (Acute Medical) Depression (Acute Medical) High cholesterol (Acute Medical) Pacemaker (Acute Medical) Stroke (Acute Medical) Surgical History: Colon resections x 3 for crohn's. Mitral valve replacement - tissue. Pacemaker placement Family History: Family History (Last Reviewed 04/19/17 @ 10:21 by Nona Molina RN) Sister Colon polyps Diabetes Maternal Aunt Breast cancer Colon cancer Maternal Grandmother Diabetes - Social History Smoking status: Current every day smoker (1/2 ppd. States she has been cutting down. Has smoked since her 's) Substance use type: does not use Alcohol intake frequency: does not drink Housing: house Household members: none Current occupational status: disabled Current residence: Apartment/Private Home Medications Home Medications Medication Instructions Recorded Confirmed Type Midodrine HCl 15 mg PO BID #0 11/01/11 10/09/17 History Infliximab [Remicade] 100 mg IV Q6-8W #0 08/05/13 10/09/17 History Carvedilol 3.125 mg PO BIDWM #0 08/21/15 10/09/17 History Sotalol HCl [Sotalol] 80 mg PO BID #0 08/21/15 10/09/17 History Diphenoxylate HCl/Atropine 1 - 2 tab PO Q6HPRN PRN #30 tab 07/19/16 10/09/17 History [Lomotil 2.5-0.025 mg Tablet] Atorvastatin Calcium 40 mg PO DAILY #0 tab 01/19/17 10/09/17 History ClonazePAM [Klonopin] 1 mg PO TID 03/13/17 10/09/17 History Famotidine [Pepcid] 20 mg PO DAILY 03/13/17 10/09/17 History Delzicol (Mesalamine) 400 mg 800 mg PO BID 04/10/17 10/09/17 History capsule (delayed release tabs inside) Hydrocodone/Acetaminophen 1 - 2 tab PO TID PRN 05/30/17 10/09/17 History [Hydrocodon-Acetaminophn 10-300] Dicyclomine [Bentyl] 10 mg PO BID 10/09/17 10/09/17 History Montelukast [Singulair] 10 mg PO DAILY 10/09/17 10/09/17 History hydrOXYzine HCl [Hydroxyzine HCl] 1 tab PO BID 10/09/17 10/09/17 History Allergies Allergy/AdvReac Type Severity Reaction Status Date / Time niacin Allergy Severe AIRWAY Verified 10/09/17 04:29 OBSTRUCTION codeine Allergy Intermediate ITCHING Verified 10/09/17 04:29 escitalopram Allergy Unknown ITCHING Verified 10/09/17 04:29 mercaptopurine Allergy Unknown Verified 10/09/17 04:29 duloxetine AdvReac Intermediate blackout Verified 10/09/17 04:29 prochlorperazine AdvReac Unknown Verified 10/09/17 04:29 quetiapine AdvReac Unknown HEART Verified 10/09/17 04:29 PALPITATIONS Exam Vital signs: Temperature 96.8 F 10/09/17 08:21 Pulse Rate 81 10/09/17 08:21 Respiratory Rate 18 10/09/17 08:21 Blood Pressure 117/76 10/09/17 08:21 Pulse Oximetry 100 10/09/17 08:21 - Constitutional no acute distress, well nourished, cooperative - Routine HEENT Exam Head: Present: normocephalic ENT: Present: mucous membranes moist - Routine Neck Exam Absent: JVD, carotid bruit - Routine Chest/Breast/Axilla Exam Chest wall: Absent: tenderness - Routine Respiratory Exam Present: dyspnea. Absent: CTA bilaterally, rales, wheezes - Routine Cardiovascular Exam Present: no murmur, irregular rhythm - Routine Abdominal Exam Present: soft, normoactive bowel sounds - Routine Extremities Exam Present: no edema - Routine Skin Exam Present: intact, dry, warm - Routine Neurological Exam Present: alert, oriented X3 - Routine Psychiatric Exam Present: normal affect, normal thought process Results 10/09/17 04:28 10/09/17 04:28 Intake and Output 10/08/17 10/09/17 10/09/17 22:59 06:59 14:59 Intake Total 100 / 100 Balance 100 / 100 Intake: IV 100 / 100 Cefepime 1 gm In Ns 100 ml @ 100 / 100 200 mls/hr IV O ONE Rx#: [id number] Other: Weight 125 lb 10.616 oz Patient Weight 10/10/17 06:59 Weight 125 lb 10.616 oz Laboratory Results - last 24 hr 10/09/17 10/09/17 10/09/17 04:25 04:27 04:28 WBC Cancelled Corrected WBC Cancelled RBC Cancelled Hgb Cancelled Hct Cancelled MCV Cancelled MCH Cancelled MCHC Cancelled RDW Std Deviation Cancelled Plt Count Cancelled MPV Cancelled Immature Gran % (Auto) Cancelled Neut % (Auto) Cancelled Lymph % (Auto) Cancelled Erath % (Auto) Cancelled Eos % (Auto) Cancelled Baso % (Auto) Cancelled Neut # (Auto) Cancelled Lymph # (Auto) Cancelled Erath # (Auto) Cancelled Eos # (Auto) Cancelled Baso # (Auto) Cancelled Abs Immat Gran (auto) Cancelled Neutrophils % (Manual) Cancelled Band Neutrophils % Cancelled Lymphocytes % (Manual) Cancelled Reactive Lymphs % Cancelled Monocytes % (Manual) Cancelled Eosinophils % (Manual) Cancelled Basophils % (Manual) Cancelled Metamyelocytes % Cancelled Myelocytes % Cancelled Promyelocytes % Cancelled Blast Cells % Cancelled Neutrophils # (Manual) Cancelled Band Neutrophils # Cancelled Lymphocytes # (Manual) Cancelled Abs React Lymphs (Man) Cancelled Monocytes # (Manual) Cancelled Eosinophils # (Manual) Cancelled Basophils # (Manual) Cancelled Metamyelocytes # Cancelled Myelocytes # Cancelled Promyelocytes # Cancelled Plasma Cell # (Manual) Cancelled Nucleated RBCs Cancelled Hypersegmented Neuts Cancelled Hyposegmented Neuts Cancelled Hypogranular Neuts Cancelled Prolymphocytes Cancelled Blast Cells # Cancelled Plasma Cells Cancelled Smudge Cells Cancelled Toxic Granulation Cancelled Toxic Vacuolation Cancelled Dohle Bodies Cancelled Miriam Rods Cancelled Clumped Platelets Cancelled Giant Platelets Cancelled Dimorphic RBCs Cancelled Polychromasia Cancelled Hypochromasia Cancelled Poikilocytosis Cancelled Basophilic Stippling Cancelled Anisocytosis Cancelled Microcytosis Cancelled Macrocytosis Cancelled Spherocytes Cancelled Pappenheimer Bodies Cancelled Sickle Cells Cancelled Target Cells Cancelled Tear Drop Cells Cancelled Ovalocytes Cancelled Stomatocytes Cancelled Helmet Cells Cancelled Evans-Aloha Bodies Cancelled Binford Rings Cancelled [place] Cells Cancelled Crenated Cell Cancelled Acanthocytes (Spur) Cancelled Rouleaux Cancelled Schistocytes Cancelled RBC Morph Comment Cancelled Turbidity Sodium Potassium Chloride Carbon Dioxide Anion Gap BUN Creatinine GFR Calculation BUN/Creatinine Ratio Glucose Calculated Osmolality Calcium Total Bilirubin Icterus Index AST ALT Alkaline Phosphatase Troponin I Total Protein Albumin Globulin Albumin/Globulin Ratio Plasma Lactate Procalcitonin < 0.05 Specimen Hemolysis Ur Collection Type Urine Color Urine Clarity Urine pH Ur Specific Kenvil Urine Protein Urine Glucose (UA) Urine Ketones Urine Occult Blood Urine Nitrate Urine Bilirubin Urine Urobilinogen Ur Leukocyte Esterase Urine RBC Urine WBC Ur Squamous Epith Cells Urine Bacteria Ur Culture Indicated? Adenovirus (PCR) B.parapertussis DNA PCR C. pneumoniae DNA (PCR) Coronavirus OC43 (PCR) Coronavirus HKU1 (PCR) Coronavirus 229E (PCR) Coronavirus NL63 (PCR) Human Metapneumovir PCR Influenza Type A (PCR) Negative Influenza Type B (PCR) Negative M. pneumoniae (PCR) Parainfluenza 1 (PCR) Parainfluenza 2 (PCR) Parainfluenza 3 (PCR) Parainfluenza 4 (PCR) RSV (PCR) 10/09/17 10/09/17 10/09/17 04:28 04:28 05:42 WBC 12.1 H Corrected WBC RBC 5.01 Hgb 14.8 Hct 43.8 MCV 87.4 MCH 29.5 MCHC 33.8 RDW Std Deviation 42.3 Plt Count 345 MPV 9.6 Immature Gran % (Auto) 0.2 Neut % (Auto) 64.9 Lymph % (Auto) 25.0 Erath % (Auto) 8.9 Eos % (Auto) 0.5 Baso % (Auto) 0.5 Neut # (Auto) 7.9 H Lymph # (Auto) 3.0 Erath # (Auto) 1.1 H Eos # (Auto) 0.1 Baso # (Auto) 0.1 Abs Immat Gran (auto) 0.02 Neutrophils % (Manual) Band Neutrophils % Lymphocytes % (Manual) Reactive Lymphs % Monocytes % (Manual) Eosinophils % (Manual) Basophils % (Manual) Metamyelocytes % Myelocytes % Promyelocytes % Blast Cells % Neutrophils # (Manual) Band Neutrophils # Lymphocytes # (Manual) Abs React Lymphs (Man) Monocytes # (Manual) Eosinophils # (Manual) Basophils # (Manual) Metamyelocytes # Myelocytes # Promyelocytes # Plasma Cell # (Manual) Nucleated RBCs Hypersegmented Neuts Hyposegmented Neuts Hypogranular Neuts Prolymphocytes Blast Cells # Plasma Cells Smudge Cells Toxic Granulation Toxic Vacuolation Dohle Bodies Miriam Rods Clumped Platelets Giant Platelets Dimorphic RBCs Polychromasia Hypochromasia Poikilocytosis Basophilic Stippling Anisocytosis Microcytosis Macrocytosis Spherocytes Pappenheimer Bodies Sickle Cells Target Cells Tear Drop Cells Ovalocytes Stomatocytes Helmet Cells Evans-Aloha Bodies Binford Rings [place] Cells Crenated Cell Acanthocytes (Spur) Rouleaux Schistocytes RBC Morph Comment Turbidity < 20 Sodium 143 Potassium 3.3 L Chloride 109 H Carbon Dioxide 19 L Anion Gap 15 BUN 17.0 Creatinine 0.8 GFR Calculation 73 BUN/Creatinine Ratio 21 Glucose 111 H Calculated Osmolality 278 Calcium 10.5 H Total Bilirubin 0.90 Icterus Index < 2 AST 24 ALT 25 Alkaline Phosphatase 130 H Troponin I < 0.012 Total Protein 9.2 H Albumin 5.3 H Globulin 3.9 H Albumin/Globulin Ratio 1.4 Plasma Lactate 2.4 H Procalcitonin Specimen Hemolysis < 15 Ur Collection Type Urine, clean catch Urine Color Yellow Urine Clarity Cloudy Urine pH 5.5 Ur Specific Kenvil 1.025 Urine Protein Trace A Urine Glucose (UA) Negative Urine Ketones 1+ A Urine Occult Blood Trace-intact Urine Nitrate Negative Urine Bilirubin 1+ A Urine Urobilinogen 0.2 Ur Leukocyte Esterase 2+ A Urine RBC None seen Urine WBC 50-200 H Ur Squamous Epith Cells 10-20 Urine Bacteria Trace H Ur Culture Indicated? Cult not indicated Adenovirus (PCR) B.parapertussis DNA PCR C. pneumoniae DNA (PCR) Coronavirus OC43 (PCR) Coronavirus HKU1 (PCR) Coronavirus 229E (PCR) Coronavirus NL63 (PCR) Human Metapneumovir PCR Influenza Type A (PCR) Influenza Type B (PCR) M. pneumoniae (PCR) Parainfluenza 1 (PCR) Parainfluenza 2 (PCR) Parainfluenza 3 (PCR) Parainfluenza 4 (PCR) RSV (PCR) 10/09/17 10/09/17 08:30 09:56 WBC Corrected WBC RBC Hgb Hct MCV MCH MCHC RDW Std Deviation Plt Count MPV Immature Gran % (Auto) Neut % (Auto) Lymph % (Auto) Erath % (Auto) Eos % (Auto) Baso % (Auto) Neut # (Auto) Lymph # (Auto) Erath # (Auto) Eos # (Auto) Baso # (Auto) Abs Immat Gran (auto) Neutrophils % (Manual) Band Neutrophils % Lymphocytes % (Manual) Reactive Lymphs % Monocytes % (Manual) Eosinophils % (Manual) Basophils % (Manual) Metamyelocytes % Myelocytes % Promyelocytes % Blast Cells % Neutrophils # (Manual) Band Neutrophils # Lymphocytes # (Manual) Abs React Lymphs (Man) Monocytes # (Manual) Eosinophils # (Manual) Basophils # (Manual) Metamyelocytes # Myelocytes # Promyelocytes # Plasma Cell # (Manual) Nucleated RBCs Hypersegmented Neuts Hyposegmented Neuts Hypogranular Neuts Prolymphocytes Blast Cells # Plasma Cells Smudge Cells Toxic Granulation Toxic Vacuolation Dohle Bodies Miriam Rods Clumped Platelets Giant Platelets Dimorphic RBCs Polychromasia Hypochromasia Poikilocytosis Basophilic Stippling Anisocytosis Microcytosis Macrocytosis Spherocytes Pappenheimer Bodies Sickle Cells Target Cells Tear Drop Cells Ovalocytes Stomatocytes Helmet Cells Evans-Aloha Bodies Binford Rings Chrissie Cells Crenated Cell Acanthocytes (Spur) Rouleaux Schistocytes RBC Morph Comment Turbidity Sodium Potassium Chloride Carbon Dioxide Anion Gap BUN Creatinine GFR Calculation BUN/Creatinine Ratio Glucose Calculated Osmolality Calcium Total Bilirubin Icterus Index AST ALT Alkaline Phosphatase Troponin I Total Protein Albumin Globulin Albumin/Globulin Ratio Plasma Lactate 0.9 Procalcitonin Specimen Hemolysis Ur Collection Type Urine Color Urine Clarity Urine pH Ur Specific Kenvil Urine Protein Urine Glucose (UA) Urine Ketones Urine Occult Blood Urine Nitrate Urine Bilirubin Urine Urobilinogen Ur Leukocyte Esterase Urine RBC Urine WBC Ur Squamous Epith Cells Urine Bacteria Ur Culture Indicated? Adenovirus (PCR) Negative B.parapertussis DNA PCR Negative C. pneumoniae DNA (PCR) Negative Coronavirus OC43 (PCR) Negative Coronavirus HKU1 (PCR) Negative Coronavirus 229E (PCR) Negative Coronavirus NL63 (PCR) Negative Human Metapneumovir PCR Negative Influenza Type A (PCR) Negative Influenza Type B (PCR) Negative M. pneumoniae (PCR) Negative Parainfluenza 1 (PCR) Negative Parainfluenza 2 (PCR) Negative Parainfluenza 3 (PCR) Negative Parainfluenza 4 (PCR) Negative RSV (PCR) Negative - Imaging and Cardiology Imaging & Cardiology Narrative: Date of Exam: 10/09/17 Ordering Provider: Brian Mejia DO Type of Exam(s): CT angio pulm emboli Reason for Exam(s): sob Indication: sob PROCEDURE: CT angio pulm emboli: Encounter: Initial Comparison: None Technique: Axial CT pulmonary angiographic phase images were performed through the chest after the administration of intravenous contrast. Coronal and Sagittal MIP reconstructed images were created and reviewed. Automated Exposure Control and Iterative Reconstruction dose reducing techniques were utilized. Contrast: Omnipaque 350 49 mL Findings: Pulmonary arteries: Exam is diagnostic to the subsegmental pulmonary arterial level. There are no filling defects identified to suggest a pulmonary embolus. Other findings: Calcified granulomas. No focal consolidative pneumonia. No pleural effusion or pneumothorax. The central airways are patent. There is some bronchial wall thickening in the right lower lobe with mucous plugging. No axillary or mediastinal adenopathy. Heart size is normal. No pericardial effusion. The upper abdomen shows no acute findings. Impression: No pulmonary embolus. Mucus plugging within lower lobe bronchi could represent minor aspiration event or infection. There is a preliminary report by [facility]. 10/09/17 11:23 Date of Exam: 10/09/17 Ordering Provider: Brian Mejia DO Type of Exam(s): XR chest 1V Reason for Exam(s): cough Indication: cough PROCEDURE: XR chest 1V: Encounter: Initial Comparison: January 18, 2016 Findings: The lungs are stable in appearance without new focal airspace consolidation. There is no pleural effusion or pneumothorax. The heart size, pulmonary vascularity and mediastinal contours are unchanged. Prior CABG. Left pacemaker. Right IJ port. Calcified granulomas. IMPRESSION: Stable appearance of the chest without acute cardiopulmonary disease. EKG interpretations - EKG EKG shows: atrial fibrillation (with RVR) - Blocks, axis, hypertrophy, ST abn Repolarization changes or abnormalities: nonspecific abnormality, ST segment, and/or T wave Assessment and Plan - Assessment and Plan (1) Atrial fibrillation with RVR Current visit: Yes Status: Acute History of PAF - Start Eliquis 5mg BID, watch for GI Bleed as has history of Crohns - Continue home Sotalol 80mg BID - Check TSH and Mag - EKG in am (2) Bronchitis Current visit: Yes Status: Acute (3) Presence of cardiac pacemaker Problem details: Biotronik Current visit: Yes Status: Chronic Interrogate please (4) Nonrheumatic mitral valve insufficiency Current visit: Yes Status: Chronic - Assessment and Plan History of PAF - Start Eliquis 5mg BID, watch for GI Bleed as has history of Crohns - Continue home Sotalol 80mg BID - Check TSH and Mag - EKG in am Biotronik PPM: Interrogate please Thank you for allowing us to participate in the care of this patient Hospital Course Summary Disclaimer: The visit summary below is not to be considered part of the above Progress Note. <Thomas Nelson - Last Filed: 10/10/17 11:55> [facility] Patient Stated Medical History Cerebrovascular Accident Yes Other HEENT Yes: WEARS GLASSES Angina Yes Cardiac Arrhythmia Yes: AFIB Coronary Artery Disease Yes Hypertension Yes Rheumatic Fever Yes Valvular Heart Disease Yes Other Cardiology Yes: "Blood clot filter" top of heart Chronic Obstructive Pulmonary Yes Disease (COPD) Pneumonia Yes Gastroesophageal Reflux Yes Disease Other GI Yes: CROHNS,IBS Hx Urinary Tract Infection Yes Other Hematologic Yes: BRUISES EASILY Osteoarthritis Yes Anesthesia Reactions Yes: WOKE UP DURING PROCEDURE Blood Transfusions Yes Depression Yes Substance Use Disorder Yes: HX OF etoh Other Behavioral Health Yes: PANIC ATTACKS Clinic Medical History (Last Reviewed 04/19/17 @ 10:21 by Nona Molina RN) Anxiety (Acute Medical) Atrial fibrillation (Acute Medical) Cataracts, bilateral (Acute Medical) Crohn disease (Acute Medical) Depression (Acute Medical) High cholesterol (Acute Medical) Pacemaker (Acute Medical) Stroke (Acute Medical) Family History: Family History (Last Reviewed 04/19/17 @ 10:21 by Nona Molina RN) Sister Colon polyps Diabetes Maternal Aunt Breast cancer Colon cancer Maternal Grandmother Diabetes Exam Vital signs: Temperature 96.8 F 10/10/17 08:18 Pulse Rate 91 10/10/17 08:28 Respiratory Rate 20 10/10/17 08:18 Blood Pressure 105/78 10/10/17 08:18 Pulse Oximetry 99 10/10/17 08:18 Results 10/10/17 04:37 10/10/17 04:37 CBC 10/10/17 Range/Units 04:37 WBC 6.9 D (4.5-11.0) T/MM3 RBC 3.42 L (4.00-5.20) M/MM3 Hgb 10.2 L D (12-16) GM/DL Hct 30.8 L D (36-46) % Plt Count 260 (130-400) T/MM3 Neut # (Auto) 3.9 (1.8-7.7) T/MM3 Lymph # (Auto) 2.4 (1-4.8) T/MM3 Erath # (Auto) 0.6 (0-0.8) T/MM3 Eos # (Auto) 0.1 (0-0.5) T/MM3 Baso # (Auto) 0.0 (0-0.2) T/MM3 Comprehensive Metabolic Panel 10/10/17 Range/Units 04:37 Sodium 145 H (134-144) MEQ/L Potassium 3.4 L (3.6-5) MEQ/L Chloride 117 H D (98-107) MEQ/L Carbon Dioxide 21 L (22-30) MEQ/L BUN 12.0 (7-17) MG/DL Creatinine 0.6 L D (0.7-1.2) MG/DL Glucose 83 (65-110) MG/DL Calcium 8.7 D (8.4-10.2) MG/DL Albumin 3.5 (3.5-5.0) G/DL Intake and Output 10/09/17 10/10/17 10/10/17 22:59 06:59 14:59 Intake Total 1218.333 / 8229.859 0815 / 1150 120 / 120 Balance 1218.333 / 2061.547 9933 / 1150 120 / 120 Intake: IV 978.333 / 119.671 8170 / 1000 Ns 1,000 ml @ 100 mls/hr IV . 978.333 / 277.824 6345 / 1000 Q10H [facility] Rx#:[id number] Oral 240 / 240 150 / 150 120 / 120 Other: Weight 59 kg Patient Weight 10/11/17 06:59 Weight 59 kg Assessment and Plan - Attestation Attestation Narrative: 10/10/17 11:55 Recommendation After examining the patient I agree with the above assessment. I am involved in the formulation of the patient's plan of care. - Assessment and Plan (1) Bronchitis Current visit: Yes Status: Acute (2) Atrial fibrillation with RVR Current visit: Yes Status: Acute (3) Presence of cardiac pacemaker Problem details: Biotronik Current visit: Yes Status: Chronic (4) Nonrheumatic mitral valve insufficiency Current visit: Yes Status: Chronic Hospital Course Summary Disclaimer: The visit summary below is not to be considered part of the above Progress Note.
[2017-10-09] MEDS: ALBUTEROL/IPRATROPIUM 2.5mg-0.5mg/3ml NEB AEROSOL SCH ×3 (13:39→20:11)
[2017-10-09] MEDS: ClonazePAM 1 MG TABLET PO SCH ×2 (15:38→20:44)
[2017-10-09] MEDS: CARVEDILOL 3.125 MG TABLET PO SCH (18:56)
[2017-10-09] MEDS: BUDESONIDE INH.SOLN 0.5mg/2ml NEB AEROSOL SCH (20:11)
[2017-10-09] MEDS: APIXABAN 5 MG TABLET PO SCH (20:44)
[2017-10-09] MEDS: DICYCLOMINE 10mg CAPSULE PO SCH (20:44)
[2017-10-09] MEDS: HYDROCODONE/APAP 5mg/325mg TABLET PO PRN (20:44)
[2017-10-09] MEDS: SOTALOL 80 MG TABLET PO SCH (20:45)
[2017-10-09] MEDS: SORE THROAT SPRAY 20ml PO PRN (21:29)
[2017-10-10] MEDS: BUDESONIDE INH.SOLN 0.5mg/2ml NEB AEROSOL SCH ×2 (07:55→20:01)
[2017-10-10] MEDS: ALBUTEROL/IPRATROPIUM 2.5mg-0.5mg/3ml NEB AEROSOL SCH ×4 (07:55→20:01)
[2017-10-10] MEDS: NS 1,000 ML IV SCH ×2 (08:21→19:37)
[2017-10-10] MEDS: CARVEDILOL 3.125 MG TABLET PO SCH ×2 (08:27→16:55)
[2017-10-10] MEDS: FAMOTIDINE 20 MG TABLET PO SCH (08:27)
[2017-10-10] MEDS: APIXABAN 5 MG TABLET PO SCH (08:27)
[2017-10-10] MEDS: ATORVASTATIN 40 MG TABLET PO SCH (08:27)
[2017-10-10] MEDS: GUAIFENESIN LA 600 MG TABLET PO SCH ×2 (08:28→20:12)
[2017-10-10] MEDS: SOTALOL 80 MG TABLET PO SCH ×2 (08:28→20:12)
[2017-10-10] MEDS: DICYCLOMINE 10mg CAPSULE PO SCH ×2 (08:28→20:13)
[2017-10-10] MEDS: MONTELUKAST 10 MG PO SCH (08:28)
[2017-10-10] MEDS: NICOTINE 14 MG PATCH TD SCH (08:28)
[2017-10-10] MEDS: NICOTINE PATCH REMOVAL TD SCH (08:29)
[2017-10-10] MEDS: ClonazePAM 1 MG TABLET PO SCH ×3 (08:33→21:34)
--- NOTE | 2017-10-10 10:29 | Cardiology Progress Note ---
<Alyssa Ramirez - Last Filed: 10/10/17 14:09> Subjective Principal diagnosis: A Fib Interval history: Viktor is seen in follow up for atrial fibrillation. She converted back to AFib around 0230 today, rate is controlled in the 80-90s. She denies chest pain, has a frequent loose nonproductive cough. Exam Vital signs: Temperature 96.8 F 10/10/17 08:18 Pulse Rate 91 10/10/17 08:28 Respiratory Rate 20 10/10/17 08:18 Blood Pressure 105/78 10/10/17 08:18 Pulse Oximetry 99 10/10/17 08:18 - Constitutional mild distress, well nourished, cooperative - Routine HEENT Exam Head: Present: normocephalic ENT: Present: mucous membranes moist - Routine Neck Exam Absent: JVD, carotid bruit - Routine Chest/Breast/Axilla Exam Chest wall: Absent: tenderness - Routine Respiratory Exam Present: dyspnea. Absent: CTA bilaterally, wheezes - Routine Cardiovascular Exam Present: murmur, irregular rhythm - Routine Abdominal Exam Present: soft, normoactive bowel sounds - Routine Extremities Exam Present: no edema - Routine Skin Exam Present: intact, dry, warm - Routine Neurological Exam Present: alert, oriented X3 - Routine Psychiatric Exam Present: normal affect, normal thought process - Additional findings Additional findings: Hydrocodone Bitart/Acetaminophen (Burgin 5/325) 1 - 2 tab PO TID PRN PRN Reason: Pain Last Admin: 10/09/17 20:44 Dose: 1 tab Albuterol/Ipratropium (Duoneb) 3 ml AEROSOL RTQID [facility] Last Admin: 10/10/17 07:55 Dose: 3 ml Apixaban (Eliquis) 5 mg PO BID [facility] Last Admin: 10/10/17 08:27 Dose: 5 mg Atorvastatin Calcium (Lipitor) 40 mg PO DAILY [facility] Last Admin: 10/10/17 08:27 Dose: 40 mg Budesonide (Pulmicort Inhalation) 0.5 mg AEROSOL RTBID [facility] Last Admin: 10/10/17 07:55 Dose: 0.5 mg Carvedilol (Coreg) 3.125 mg PO BIDWM [facility] Last Admin: 10/10/17 08:27 Dose: 3.125 mg Clonazepam (Klonopin) 1 mg PO TID [facility] Last Admin: 10/10/17 08:33 Dose: 1 mg Dicyclomine HCl (Bentyl) 10 mg PO BID [facility] Last Admin: 10/10/17 08:28 Dose: 10 mg Diphenoxylate HCl/Atropine (Lomotil) 1 - 2 tab PO Q6H PRN PRN Reason: Diarrhea Last Admin: 10/09/17 21:29 Dose: 1 tab Famotidine (Pepcid) 20 mg PO DAILY [facility] Last Admin: 10/10/17 08:27 Dose: 20 mg Guaifenesin (Mucinex La) 600 mg PO BID [facility] Last Admin: 10/10/17 08:28 Dose: 600 mg Sodium Chloride (Normal Saline) 1,000 mls @ 100 mls/hr IV .Q10H [facility] Last Admin: 10/10/17 08:21 Dose: 100 mls/hr Montelukast Sodium (Singulair) 10 mg PO DAILY [facility] Last Admin: 10/10/17 08:28 Dose: 10 mg Nicotine (Nicoderm) 14 mg TD DAILY [facility] Last Admin: 10/10/17 08:28 Dose: 14 mg Nicotine (Nicotine Patch Removal) 1 removal TD DAILY [facility] Last Admin: 10/10/17 08:29 Dose: 1 removal Pneumococcal 7-Valent Conj Vacc (Prevnar 13) 0.5 ml IM .ONCE ONE Stop: 10/10/17 12:04 Sodium Chloride (Iv Flush) 10 - 80 ml IVF PRN PRN PRN Reason: Flushing Last Admin: 10/09/17 06:13 Dose: 10 ml Sotalol HCl (Betapace) 80 mg PO BID [facility] Last Admin: 10/10/17 08:28 Dose: 80 mg Throat Lozenges (Chloraseptic [place]) 3 spray PO Q2H PRN Last Admin: 10/09/17 21:29 Dose: 3 spray Results 10/10/17 04:37 10/10/17 04:37 CBC 10/10/17 Range/Units 04:37 WBC 6.9 D (4.5-11.0) T/MM3 RBC 3.42 L (4.00-5.20) M/MM3 Hgb 10.2 L D (12-16) GM/DL Hct 30.8 L D (36-46) % Plt Count 260 (130-400) T/MM3 Neut # (Auto) 3.9 (1.8-7.7) T/MM3 Lymph # (Auto) 2.4 (1-4.8) T/MM3 Nelson # (Auto) 0.6 (0-0.8) T/MM3 Eos # (Auto) 0.1 (0-0.5) T/MM3 Baso # (Auto) 0.0 (0-0.2) T/MM3 Comprehensive Metabolic Panel 10/10/17 Range/Units 04:37 Sodium 145 H (134-144) MEQ/L Potassium 3.4 L (3.6-5) MEQ/L Chloride 117 H D (98-107) MEQ/L Carbon Dioxide 21 L (22-30) MEQ/L BUN 12.0 (7-17) MG/DL Creatinine 0.6 L D (0.7-1.2) MG/DL Glucose 83 (65-110) MG/DL Calcium 8.7 D (8.4-10.2) MG/DL Albumin 3.5 (3.5-5.0) G/DL Intake and Output 10/09/17 10/10/17 10/10/17 22:59 06:59 14:59 Intake Total 1218.333 / 0992.634 2564 / 1150 Balance 1218.333 / 0162.749 4788 / 1150 Intake: IV 978.333 / 695.311 5924 / 1000 Ns 1,000 ml @ 100 mls/hr IV . 978.333 / 640.864 7685 / 1000 Q10H [facility] Rx#:[id number] Oral 240 / 240 150 / 150 Other: Weight 130 lb 1.164 oz Patient Weight 10/11/17 06:59 Weight 130 lb 1.164 oz Laboratory Results - last 24 hr 10/09/17 10/09/17 10/10/17 04:28 09:56 04:37 WBC 6.9 D RBC 3.42 L Hgb 10.2 L D Hct 30.8 L D MCV 90.1 MCH 29.8 MCHC 33.1 RDW Std Deviation 43.0 Plt Count 260 MPV 9.0 L Immature Gran % (Auto) 0.1 Neut % (Auto) 55.5 Lymph % (Auto) 34.3 Nelson % (Auto) 8.9 Eos % (Auto) 0.9 Baso % (Auto) 0.3 Neut # (Auto) 3.9 Lymph # (Auto) 2.4 Nelson # (Auto) 0.6 Eos # (Auto) 0.1 Baso # (Auto) 0.0 Abs Immat Gran (auto) 0.01 Turbidity Sodium Potassium Chloride Carbon Dioxide Anion Gap BUN Creatinine GFR Calculation BUN/Creatinine Ratio Glucose Calculated Osmolality Calcium Phosphorus Magnesium 1.6 Icterus Index Albumin TSH 2.05 Specimen Hemolysis Adenovirus (PCR) Negative B.parapertussis DNA PCR Negative C. pneumoniae DNA (PCR) Negative Coronavirus OC43 (PCR) Negative Coronavirus HKU1 (PCR) Negative Coronavirus 229E (PCR) Negative Coronavirus NL63 (PCR) Negative Human Metapneumovir PCR Negative Influenza Type A (PCR) Negative Influenza Type B (PCR) Negative M. pneumoniae (PCR) Negative Parainfluenza 1 (PCR) Negative Parainfluenza 2 (PCR) Negative Parainfluenza 3 (PCR) Negative Parainfluenza 4 (PCR) Negative RSV (PCR) Negative Entero/Rhino (PCR) Detected A* 10/10/17 04:37 WBC RBC Hgb Hct MCV MCH MCHC RDW Std Deviation Plt Count MPV Immature Gran % (Auto) Neut % (Auto) Lymph % (Auto) Nelson % (Auto) Eos % (Auto) Baso % (Auto) Neut # (Auto) Lymph # (Auto) Nelson # (Auto) Eos # (Auto) Baso # (Auto) Abs Immat Gran (auto) Turbidity < 20 Sodium 145 H Potassium 3.4 L Chloride 117 H D Carbon Dioxide 21 L Anion Gap 7 BUN 12.0 Creatinine 0.6 L D GFR Calculation 102 BUN/Creatinine Ratio 20 Glucose 83 Calculated Osmolality 278 Calcium 8.7 D Phosphorus 2.7 Magnesium 1.7 Icterus Index < 2 Albumin 3.5 TSH Specimen Hemolysis < 15 Adenovirus (PCR) B.parapertussis DNA PCR C. pneumoniae DNA (PCR) Coronavirus OC43 (PCR) Coronavirus HKU1 (PCR) Coronavirus 229E (PCR) Coronavirus NL63 (PCR) Human Metapneumovir PCR Influenza Type A (PCR) Influenza Type B (PCR) M. pneumoniae (PCR) Parainfluenza 1 (PCR) Parainfluenza 2 (PCR) Parainfluenza 3 (PCR) Parainfluenza 4 (PCR) RSV (PCR) Entero/Rhino (PCR) Assessment and Plan - Assessment and Plan (1) Atrial fibrillation with RVR Status: Acute (2) Bronchitis Status: Acute (3) Presence of cardiac pacemaker Problem details: Biotronik Status: Chronic (4) Nonrheumatic mitral valve insufficiency Status: Chronic - Assessment and Plan History of PAF - Start Eliquis 5mg BID, watch for GI Bleed as has history of Crohns - Continue home Sotalol 80mg BID - Check TSH and Mag - EKG in am Biotronik PPM: Interrogate please Thank you for allowing us to participate in the care of this patient 10/10/17 Converted back into A Fib, rate controlled. - Aberrant AFib at times - Echocardiogram today - Mag 1.7 replace with 2gms IV - K+ 3.4 replace 40meq po - Plan DCCV tomorrow , NPO after 0700 Hospital Course Summary Disclaimer: The visit summary below is not to be considered part of the above Progress Note. Hospital Course: Assessment Atrial fibrillation with RVR-converted in the ED following Cardizem IV (not on chronic anticoagulation d/t Crohn's, but has filter) Bronchitis with mucoid impaction of the lower lung bronchi Hypokalemia-POA (K+3.3) Leukocytosis-POA Crohn's disease HTN Hyperlipidemia Artificial mitral valve-(tissue) Pacemaker Depression/anxiety History of stroke GERD 10/09/17 Admit to the hospitalist service for observation with consultation to cardiology (Dr. Nelson). Dr. Nickerson attending. Patient given Cardizem in the ER with conversion to normal sinus rhythm. Anticoagulation and antiarrhythmic recommendations per cardiology. DuoNeb's, Pulmicort, Acapella, and guaifenesin for respiratory symptoms. Hold off on antibiotics at this point. No infiltrate on imaging. Respiratory panel still pending. Sputum culture ordered. Replace potassium 40 mEq by mouth 1. BMP in a.m. Respiratory consult for tobacco cessation. Nicotine patch. IV fluids-normal saline to run at 100 cc per hour until she is taking by mouth well. Speech therapy consult for swallowing evaluation. Resume most home medications. Dr. Nickerson to review those home medications not addressed on initial admission orders. SCD's for VTE prophylaxis. Patient requests DO NOT RESUSCITATE CODE STATUS. Care to return to Dr. Randall Hurd, patient's PCP, on dismissal. <Thomas Nelson - Last Filed: 10/17/17 12:59> Exam Vital signs: Temperature 96.8 F 10/11/17 15:14 Pulse Rate 68 10/11/17 15:14 Respiratory Rate 16 10/11/17 15:14 Blood Pressure 130/78 10/11/17 15:14 Pulse Oximetry 100 10/11/17 15:14 Results 10/11/17 04:35 10/11/17 04:35 Assessment and Plan - Assessment and Plan (1) Bronchitis Status: Acute (2) Atrial fibrillation with RVR Status: Acute (3) Presence of cardiac pacemaker Problem details: Biotronik Status: Chronic (4) Nonrheumatic mitral valve insufficiency Status: Chronic - Attestation Attestation Narrative: 10/17/17 12:59 Recommendation After examining the patient I agree with the above assessment. I am involved in the formulation of the patient's plan of care. Hospital Course Summary Disclaimer: The visit summary below is not to be considered part of the above Progress Note.
[2017-10-10] MEDS: HYDROCODONE/APAP 5mg/325mg TABLET PO PRN ×2 (11:11→21:38)
[2017-10-10] MEDS: SORE THROAT SPRAY 20ml PO PRN (11:11)
[2017-10-10] MEDS ORDERED: PNEUMOCOCCAL 13 VACCINE 0.5ml INJECTION IM ONE (12:03)
[2017-10-10] MEDS: GUAIFENESIN/DM 5ml ORAL LIQUID PO PRN ×3 (12:17→23:13)
[2017-10-10] MEDS: MAGNESIUM SULFATE 1gm PREMIX 1 GM/100 ML BAG IV SCH ×2 (12:25→14:09)
--- NOTE | 2017-10-10 14:29 | Progress Note ---
- Date 10/10/17 Subjective: Patient is seen sitting in bed this afternoon. She states she is feeling better. She was disappointed that she was back in atrial fibrillation. She converted back to A. fib around [address] Nelson has planned cardioversion for tomorrow. She has been coughing quite a bit and had a very bad sore throat related to the cough. She's had some cough syrup and this has been helpful to her. No chest pain, breathing is improving, no nausea or vomiting. Objective Vital signs: Temperature 96.8 F 10/10/17 08:18 Pulse Rate 91 10/10/17 08:28 Respiratory Rate 20 10/10/17 12:00 Blood Pressure 105/78 10/10/17 08:18 Pulse Oximetry 99 10/10/17 12:00 Height/Weight/BMI: Height 1.63 m Weight 59 kg Body Mass Index 21.5 - Constitutional Present: thin - Routine Respiratory Exam Present: CTA bilaterally. Absent: wheezes - Routine Cardiovascular Exam Present: RRR. Absent: murmur - Routine Abdominal Exam Present: soft, normoactive bowel sounds, non distended. Absent: tenderness - Routine Extremities Exam Present: no edema, normal capillary refill - Routine Skin Exam Present: dry, warm - Routine Neurological Exam Present: alert, oriented X3 - Routine Lymphatic Exam Lymphatic: Absent: adenopathy - Routine Psychiatric Exam Present: normal affect, cooperative Results - Labs CBC & Chem 7: 10/10/17 04:37 10/10/17 04:37 Microbiology Results: Microbiology 10/09/17 19:18 Sputum, Expectorated Gram Stain - Final 10/09/17 19:18 Sputum, Expectorated Sputum Culture - Preliminary Early growth Assessment and Plan (1) Bronchitis Current visit: Yes Status: Acute (2) Mucoid impaction of bronchi Current visit: Yes Status: Acute (3) Atrial fibrillation with RVR Current visit: Yes Status: Acute Assessment and Plan: Assessment Atrial fibrillation with RVR-converted in the ED following Cardizem IV (not on chronic anticoagulation d/t Crohn's, but has filter) Bronchitis with mucoid impaction of the lower lung bronchi Hypokalemia-POA (K+3.3) Leukocytosis-POA Crohn's disease Hyperlipidemia HTN Artificial mitral valve-(tissue) Pacemaker Depression/anxiety History of stroke GERD Plan On exam her heart sounds are normal. This was confirmed with telemetry. She converted back to normal sinus rhythm today around 1320. Per cardiology, Brittney was switched to Pradaxa given her increased risk for bleeding with her Crohn's. Continue sotalol. Continue duo nebs, Pulmicort for cough related to rhinovirus. Continue Robitussin-DM for cough. Can add Tessalon Perles if needed. Magnesium and potassium supplemented by cardiology. DVT Prophylaxis: Pradaxa GI Prophylaxis: Pepcid Resuscitation Status: Do Not Resuscitate - Physician Narrative Physician: Linh Nickerson MD Narrative: Date: 10/10/17 Time: 1939 I have independently evaluated and examined this patient. I reviewed the chart, the patient's history, and the R[employer] HELPER/PA's documented findings as above. We discussed and formulated the assessment and plan as above with additions as below: Ms. Durand has been in and out of atrial fibrillation with adequately controlled rate several times today; she's remained in sinus rhythm most of the afternoon and early evening. Respiratory symptoms have improved and she denies wheezing or exertional dyspnea but continues to experience dry cough and hoarse voice which is worsened with ongoing cough. She is aware of some palpitations and describes generalized myalgias and achiness. The patient seems more comfortable today than she did yesterday and is alert Conjunctiva are clear as is the oropharynx Cardiac exam was irregular when I saw her earlier today without murmur noted. Flat affect. Potassium/magnesium replaced (magnesium 1.7). Multiple telemetry strips reviewed demonstrating sinus rhythm, atrial fibrillation with fair rate control , and A. fib with runs of wide complex tachycardia. The latter were reviewed with Dr. Nelson who felt they represented A. fib with aberrancy. Pradaxa will be used for anticoagulation due to availability of reversing agent given patient's underlying inflammatory bowel disease. Reassess electrolytes in a.m. Hemoglobin down significantly with hydration, no evidence of acute GI blood loss -recheck a.m. Hospital Course Summary Disclaimer: The visit summary below is not to be considered part of the above Progress Note. Hospital Course: Assessment Atrial fibrillation with RVR-converted in the ED following Cardizem IV (not on chronic anticoagulation d/t Crohn's, but has filter) Bronchitis with mucoid impaction of the lower lung bronchi Hypokalemia-POA (K+3.3) Leukocytosis-POA Crohn's disease HTN Hyperlipidemia Artificial mitral valve-(tissue) Pacemaker Depression/anxiety History of stroke GERD 10/09/17 - Hospital admission Admit to the hospitalist service for observation with consultation to cardiology (Dr. Nelson). Dr. Nickerson attending. Patient given Cardizem in the ER with conversion to normal sinus rhythm. Anticoagulation and antiarrhythmic recommendations per cardiology. DuoNeb's, Pulmicort, Acapella, and guaifenesin for respiratory symptoms. Hold off on antibiotics at this point. No infiltrate on imaging. Respiratory panel was positive for rhinovirus. Sputum culture ordered. Replace potassium 40 mEq by mouth 1. BMP in a.m. Respiratory consult for tobacco cessation. Nicotine patch. IV fluids-normal saline to run at 100 cc per hour until she is taking by mouth well. Speech therapy consult for swallowing evaluation. Patient requests DO NOT RESUSCITATE CODE STATUS. Care to return to Dr. Randall Hurd, patient's PCP, on dismissal. Cardiology started Eliquis for A. fib. 10/10/17 She converted back into A. fib overnight, and then back to normal sinus rhythm this afternoon. Per cardiology, Eliquis was switched to Pradaxa given her increased risk for bleeding with her Crohn's. Continue sotalol. Continue duo nebs, Pulmicort for cough related to rhinovirus. Continue Robitussin-DM for cough. Can add Tessalon Perles if needed. Magnesium and potassium supplemented.
[2017-10-10] MEDS ORDERED: MENTHOL COUGH DROPS (RICOLA) MM PRN (19:48)
[2017-10-11] MEDS: NS 1,000 ML IV SCH ×2 (03:34→14:19)
[2017-10-11] MEDS: BUDESONIDE INH.SOLN 0.5mg/2ml NEB AEROSOL SCH (08:02)
[2017-10-11] MEDS: ALBUTEROL/IPRATROPIUM 2.5mg-0.5mg/3ml NEB AEROSOL SCH ×3 (08:02→15:05)
[2017-10-11] MEDS: DICYCLOMINE 10mg CAPSULE PO SCH (10:09)
[2017-10-11] MEDS: GUAIFENESIN LA 600 MG TABLET PO SCH (10:09)
[2017-10-11] MEDS: CARVEDILOL 3.125 MG TABLET PO SCH (10:10)
[2017-10-11] MEDS: FAMOTIDINE 20 MG TABLET PO SCH (10:10)
[2017-10-11] MEDS: NICOTINE 14 MG PATCH TD SCH (10:13)
[2017-10-11] MEDS: MONTELUKAST 10 MG PO SCH (10:13)
[2017-10-11] MEDS: ATORVASTATIN 40 MG TABLET PO SCH (10:13)
[2017-10-11] MEDS: NICOTINE PATCH REMOVAL TD SCH (10:14)
[2017-10-11] MEDS: SOTALOL 80 MG TABLET PO SCH (10:17)
[2017-10-11] MEDS: ClonazePAM 1 MG TABLET PO SCH ×2 (10:18→15:47)
--- NOTE | 2017-10-11 11:47 | Progress Note ---
- Date 10/11/17 Objective Vital signs: Temperature 96.4 F L 10/11/17 08:00 Pulse Rate 77 10/11/17 10:17 Respiratory Rate 16 10/11/17 11:23 Blood Pressure 143/81 H 10/11/17 08:00 Pulse Oximetry 98 10/11/17 08:03 Height/Weight/BMI: Height 1.63 m Weight 59.9 kg Body Mass Index 21.5 - Constitutional Present: well nourished, well developed - Routine HEENT Exam Eye: Present: EOMI ENT: Present: mucous membranes moist, dentition normal - Routine Respiratory Exam Present: CTA bilaterally. Absent: wheezes - Routine Cardiovascular Exam Present: RRR. Absent: murmur - Routine Abdominal Exam Present: soft, normoactive bowel sounds, non distended. Absent: tenderness - Routine Extremities Exam Present: normal capillary refill - Routine Skin Exam Present: dry, warm - Routine Neurological Exam Present: alert, oriented X3, CN II-XII intact - Routine Lymphatic Exam Lymphatic: Absent: adenopathy - Routine Psychiatric Exam Present: normal affect Results - Labs CBC & Chem 7: 10/11/17 04:35 10/11/17 04:35 Microbiology Results: Microbiology 10/09/17 19:18 Sputum, Expectorated Gram Stain - Final 10/09/17 19:18 Sputum, Expectorated Sputum Culture - Preliminary Early growth Assessment and Plan (1) Bronchitis Current visit: Yes Status: Acute (2) Mucoid impaction of bronchi Current visit: Yes Status: Acute (3) Atrial fibrillation with RVR Current visit: Yes Status: Acute Assessment and Plan: Assessment Atrial fibrillation with RVR-converted in the ED following Cardizem IV (not on chronic anticoagulation d/t Crohn's, but has filter) Bronchitis with mucoid impaction of the lower lung bronchi Hypokalemia-POA (K+3.3) Leukocytosis-POA Crohn's disease Hyperlipidemia HTN Artificial mitral valve-(tissue) Pacemaker Depression/anxiety History of stroke GERD Plan On exam her heart sounds are normal. This was confirmed with telemetry. She converted back to normal sinus rhythm today around 1320. Per cardiology, Eliquis was switched to Pradaxa given her increased risk for bleeding with her Crohn's. Continue sotalol. Continue duo nebs, Pulmicort for cough related to rhinovirus. Continue Robitussin-DM for cough. Can add Tessalon Perles if needed. Magnesium and potassium supplemented by cardiology. - Physician Narrative Narrative: Date: 10/11/17 Time: 1143 Hospital Course Summary Disclaimer: The visit summary below is not to be considered part of the above Progress Note. Hospital Course: Assessment Atrial fibrillation with RVR-converted in the ED following Cardizem IV (not on chronic anticoagulation d/t Crohn's, but has filter) Bronchitis with mucoid impaction of the lower lung bronchi Hypokalemia-POA (K+3.3) Leukocytosis-POA Crohn's disease HTN Hyperlipidemia Artificial mitral valve-(tissue) Pacemaker Depression/anxiety History of stroke GERD 10/09/17 - Hospital admission Admit to the hospitalist service for observation with consultation to cardiology (Dr. Nelson). Dr. Nickerson attending. Patient given Cardizem in the ER with conversion to normal sinus rhythm. Anticoagulation and antiarrhythmic recommendations per cardiology. DuoNeb's, Pulmicort, Acapella, and guaifenesin for respiratory symptoms. Hold off on antibiotics at this point. No infiltrate on imaging. Respiratory panel was positive for rhinovirus. Sputum culture ordered. Replace potassium 40 mEq by mouth 1. BMP in a.m. Respiratory consult for tobacco cessation. Nicotine patch. IV fluids-normal saline to run at 100 cc per hour until she is taking by mouth well. Speech therapy consult for swallowing evaluation. Patient requests DO NOT RESUSCITATE CODE STATUS. Care to return to Dr. Randall Hurd, patient's PCP, on dismissal. Cardiology started Eliquis for A. fib. 10/10/17 She converted back into A. fib overnight, and then back to normal sinus rhythm this afternoon. Per cardiology, Eliquis was switched to Pradaxa given her increased risk for bleeding with her Crohn's. Continue sotalol. Continue duo nebs, Pulmicort for cough related to rhinovirus. Continue Robitussin-DM for cough. Can add Tessalon Perles if needed. Magnesium and potassium supplemented.
--- NOTE | 2017-10-11 11:51 | Echocardiogram ---
DATE OF PROCEDURE October 10, [address] Linh Nickerson primary care physician This is a two-dimensional echo with spectral Doppler, color-flow and M-mode. It was obtained in a patient with atrial fibrillation. Left atrial dimension is at the upper limits of normal. Left ventricular end- diastolic dimension is normal. Left ventricular wall thickness is increased. LV systolic function is mildly reduced with ejection fraction of about 45%. Right atrium is normal. Right ventricle is normal. Pacemaker is present in the right heart. Mitral valve appears to be a bioprosthetic valve which is well seated with no stenosis or insufficiency. Aortic valve shows fibrocalcific changes with mild restriction on opening motion. Transaortic velocities are increased with a peak velocity of 2.40 m/sec with peak gradient of 23 and mean gradient of 13. Aortic valve area is calculated at 1.06 cm2. Tricuspid valve shows moderate tricuspid regurgitation with mild pulmonary hypertension with estimated pulmonary artery systolic pressure of 32. Pulmonary valve shows trace of pulmonary insufficiency. There is no pericardial effusion. IMPRESSION 1. Mild reduction in LV systolic function with ejection fraction of about 45%. 2. Concentric left ventricular hypertrophy. 3. Mild aortic insufficiency with moderate aortic stenosis with a valve area of 1.06 cm2. 4. Device wires are seen in right heart. 5. Moderate tricuspid regurgitation with normal estimated pulmonary artery systolic pressure of 32. 6. Trace of pulmonary insufficiency. 7. Bioprosthetic mitral valve which is well seated with appropriate function. [facility]
[2017-10-11] MEDS: GUAIFENESIN/DM 5ml ORAL LIQUID PO PRN (12:45)
[2017-10-11] MEDS: HYDROCODONE/APAP 5mg/325mg TABLET PO PRN (12:46)
[2017-10-11 15:17] VITALS: BP 130/78; PULSE 68; RESP 16; TEMP 96.8; O2SAT 100
--- NOTE | 2017-10-11 15:19 | Discharge Summary ---
Discharge Information Date of admission: 10/09/17 07:40 Anticipated date of discharge: 10/11/17 Attending Physician: Linh Nickerson MD Primary care physician: Randall Don MD Consults: 10/09/17 10:23 Physician Consult [CONS] Routine Consulting Provider: Thomas Rae Reason For Exam: afib with RVR (now in NSR) - Discharge Diagnosis (1) Bronchitis Status: Acute (2) Mucoid impaction of bronchi Status: Acute (3) Atrial fibrillation with RVR Status: Acute Atrial fibrillation with RVR-converted in the ED following Cardizem IV (not on chronic anticoagulation d/t Crohn's, but has filter) Bronchitis with mucoid impaction of the lower lung bronchi Hypokalemia-POA (K+3.3) Leukocytosis-POA Crohn's disease Hyperlipidemia HTN Artificial mitral valve-(tissue) Pacemaker Depression/anxiety History of stroke GERD - Procedures Procedures: Type of Exam(s): US echo doppler complete DATE OF PROCEDURE October 10, 2017 This is a two-dimensional echo with spectral Doppler, color-flow and M-mode. It was obtained in a patient with atrial fibrillation. Left atrial dimension is at the upper limits of normal. Left ventricular end- diastolic dimension is normal. Left ventricular wall thickness is increased. LV systolic function is mildly reduced with ejection fraction of about 45%. Right atrium is normal. Right ventricle is normal. Pacemaker is present in the right heart. Mitral valve appears to be a bioprosthetic valve which is well seated with no stenosis or insufficiency. Aortic valve shows fibrocalcific changes with mild restriction on opening motion. Transaortic velocities are increased with a peak velocity of 2.40 m/sec with peak gradient of 23 and mean gradient of 13. Aortic valve area is calculated at 1.06 cm2. Tricuspid valve shows moderate tricuspid regurgitation with mild pulmonary hypertension with estimated pulmonary artery systolic pressure of 32. Pulmonary valve shows trace of pulmonary insufficiency. There is no pericardial effusion. IMPRESSION 1. Mild reduction in LV systolic function with ejection fraction of about 45%. 2. Concentric left ventricular hypertrophy. 3. Mild aortic insufficiency with moderate aortic stenosis with a valve area of 1.06 cm2. 4. Device wires are seen in right heart. 5. Moderate tricuspid regurgitation with normal estimated pulmonary artery systolic pressure of 32. 6. Trace of pulmonary insufficiency. 7. Bioprosthetic mitral valve which is well seated with appropriate function. - Laboratory Labs: 10/11/17 04:35 10/11/17 04:35 Laboratory Tests 10/09/17 10/10/17 10/11/17 04:28 04:37 04:35 Hgb 14.8 10.2 L D 9.1 L Laboratory Tests 10/09/17 04:28 TSH 2.05 Laboratory Tests 10/09/17 09:56 Entero/Rhino (PCR) Detected A* - Microbiology Microbiology 10/09/17 19:18 Sputum, Expectorated Gram Stain - Final 10/09/17 19:18 Sputum, Expectorated Sputum Culture - Preliminary Staphylococcus aureus - Radiology Radiology: Date of Exam: 10/09/17 Indication: Shortness of breath PROCEDURE: CT angio pulm emboli: Pulmonary arteries: Exam is diagnostic to the subsegmental pulmonary arterial level. There are no filling defects identified to suggest a pulmonary embolus. Other findings: Calcified granulomas. No focal consolidative pneumonia. No pleural effusion or pneumothorax. The central airways are patent. There is some bronchial wall thickening in the right lower lobe with mucous plugging. No axillary or mediastinal adenopathy. Heart size is normal. No pericardial effusion. The upper abdomen shows no acute findings. Impression: No pulmonary embolus. Mucus plugging within lower lobe bronchi could represent minor aspiration event or infection. History of Present Illness HPI: Patient is a 57-year-old female who called EMS at 3 AM because she felt like her heart was going to stop and was having trouble breathing. She has had cough and shortness of breath for the last week. She initially felt like she had a respiratory illness, but when she started feeling like her heart was going to stop, this prompted her to call EMS. She states she has had symptoms like this in the past, but they've never been this pronounced or lasted this long. States her symptoms are worsening. She's coughing up very thick green mucus. In the emergency room she was found to be in A. fib with RVR heart rate 109. Her CTA chest was negative for pulmonary embolism but did show mucoid impaction in the lower lung bronchi. Chest x-ray was negative. Troponin was negative. She was given 10 mg Cardizem around 6 AM, and converted to normal sinus rhythm sometime after that was given. She was also treated with DuoNeb aerosol, given cefepime 1 g at 8:15 AM and has had 1000 mL of normal saline infused. Patient seen lying in her bed. She reports at this time she is short of breath with conversation, has no chest pain, no longer feels like her "heart is going to stop." She is fatigued, weak and achy. She's not been eating much. She did have some nausea and vomiting yesterday but none today. She does appear depressed. When discussing her DPOA-H, she states she has no family or friends. She does wish to be a DO NOT RESUSCITATE. She does have a lady at [facility], Ailyn Arteaga, who she would appoint to be her DPOA-H. Objective Vital signs: Temperature 96.8 F 10/11/17 15:14 Pulse Rate 68 10/11/17 15:14 Respiratory Rate 16 10/11/17 15:14 Blood Pressure 130/78 10/11/17 15:14 Pulse Oximetry 100 10/11/17 15:14 Height/Weight/BMI: Height 1.63 m Weight 59.9 kg Body Mass Index 21.5 - Constitutional Present: no acute distress, well nourished, well developed - Routine HEENT Exam Head: Present: normocephalic, atraumatic - Routine Respiratory Exam Present: CTA bilaterally. Absent: wheezes - Routine Cardiovascular Exam Present: RRR. Absent: murmur - Routine Abdominal Exam Present: soft, normoactive bowel sounds, non distended. Absent: tenderness - Routine Extremities Exam Present: no edema, normal capillary refill - Routine Skin Exam Present: dry, warm - Routine Neurological Exam Present: alert, oriented X3 - Routine Lymphatic Exam Lymphatic: Absent: adenopathy - Routine Psychiatric Exam Present: cooperative, depressed Hospital Course This is a general summary of the patient's hospital course. For more details refer to the complete medical record. Hospital course: Patient was admitted to the hospital on 10/09/17 for atrial fibrillation with RVR and respiratory symptoms. She spontaneously converted to normal sinus rhythm in the emergency room following a dose of Cardizem. She tested positive for rhinovirus. She was treated with DuoNeb and Pulmicort nebulizer treatments. Potassium and magnesium were low and this was replaced. Chest x-ray showed mucus plugging and Gram stain from sputum culture showed gram-positive cocci and rods with moderate neutrophils. She converted back to A. fib overnight the first night but by afternoon the next day she was back in normal sinus rhythm. Originally, cardiology has seen her when she was back in A. fib and had planned for cardioversion, but she has since been back in normal sinus rhythm and this was not necessary. They have kept her on sotalol for rhythm control. She was started initially on Eliquis by cardiology given her atrial fibrillation. The following day they changed it to Pradaxa given her Crohn's there would be a reversal agent. Her hemoglobin dropped from 14.8 to 10.2 from day 1-2, this was thought to be dilutional. Her hemoglobin dropped further to 9.1 on day of dismissal. This could be dilutional, but given that she was started on the Pradaxa, will need to monitor for further blood loss. She's had no blood or changes in her stools. At time of discharge her sputum culture showed growth of Staphylococcus, sensitivities are pending. Prescription for doxycycline 100 mg twice a day 7 days sent to pharmacy. She should have CBC tomorrow, sent to Dr. Don. See Dr. Don next week. See Dr. Rae in 2 weeks. Follow up for any signs of rectal bleeding. Time spent with patient: discharge greater than 30 minutes DVT Prophylaxis: SCD's, Pradaxa Discharge Plan - Discharge Disposition Discharge Date: 10/11/17 Disposition: Discharged Home, Self-Care *Condition: Improved Reason For Visit (Visit label in EMR): a fib with rvr, bronchitis - Discharge Medications *Discharge Medications: New Dabigatran [Pradaxa] 150 mg PO BID #60 cap Doxycycline [Vibramycin] 100 mg PO BID #14 tab Continue Midodrine HCl 15 mg PO BID #0 Sotalol HCl [Sotalol] 80 mg PO BID #0 Atorvastatin Calcium 40 mg PO DAILY #0 tab Famotidine [Pepcid] 20 mg PO DAILY Hydrocodone/Acetaminophen [Hydrocodon-Acetaminophn 10-300] 1 - 2 tab PO TID PRN PRN Reason: Pain Montelukast [Singulair] 10 mg PO DAILY Dicyclomine [Bentyl] 10 mg PO BID hydrOXYzine HCl [Hydroxyzine HCl] 1 tab PO BID Infliximab [Remicade] 100 mg IV Q6-8W #0 Carvedilol 3.125 mg PO BIDWM #0 Diphenoxylate HCl/Atropine [Lomotil 2.5-0.025 mg Tablet] 1 - 2 tab PO Q6HPRN PRN #30 tab PRN Reason: Diarrhea ClonazePAM [Klonopin] 1 mg PO TID Delzicol (Mesalamine) 400 mg capsule (delayed release tabs inside) 800 mg PO BID - Discharge Packet/Instructions *Diet: Heart healthy diet *Activity: As tolerated *Pain Management/Treatment: N/a *Wound Care: N/a Additional Instructions: You need to have a CBC drawn tomorrow. Pradaxa is the blood thinner started by Dr. Rae to prevent blood clots. Doxycycline is an antibiotic to treat to respiratory infection. *Expected Signs/Symptoms: Slow improvement in symptoms *Notify Physician if: You develop worsening cough or shortness of breath, fever , or new symptoms. *During Business Hours Contact: Dr. Randall Don's office *After Business Hours Contact: Dr. Don's office and follow after-hours instructions *Pending Lab/Results: Follow up w/your PCP - Referrals/Follow Up *Referrals/Follow Up: Thomas Rae MD [Physician] - 2 Weeks (please sched pt to see DR. RAE in [place] in 2 wkS [address] RAE ON 11/16/2017 AT 10:40 AM (SCHEDULED ALREADY)) Randall Don MD [Family Provider] - 1 Week (Please arrange for patient to have CBC drawn tomorrow and faxed to Dr. Randall Don's office. APPOINTMENT WITH YING SALAS (OF DR. DON) ON 10/18/2017 AT 2:30 PM HAVE CBC LAB DRAWN ON 10/12/2017 AND HAVE FAXED TO RANDALL DON) - Patient Handouts Patient Handouts: A-fib (Atrial Fibrillation) (GEN) - Dismissal Complete Discharge Instructions are:: Complete Physician Narrative - Narrative Physician: Linh Nickerson MD Attestation Narrative: Date: 10/11/17 Time: 2300 I have independently evaluated and examined this patient. I reviewed the chart, the patient's history, and the SHIPPING AND RECEIVING ASSOCIATE/PA's documented findings as above. We discussed and formulated the assessment and plan as above with additions as below: Viktor denied dyspnea when seen today; hemoglobin is down and she reports ongoing diarrhea without melena, rectal bleeding, reflux, or indigestion. She acknowledges dehydration on presentation. NAD, alert, breathing comfortably No wheezing on auscultation, benign abdomen Stable for discharge, hemoglobin will need to be followed closely. Presence of staph in sputum noted-likely colonization but will treat as patient is immunocompromised.
[2017-10-11] MEDS ORDERED: ATORVASTATIN 40 MG TABLET PO SCH (21:00)
== END 2017-10-11 17:05 | disposition home or self-care (01) | DRG 309 ==
LOC: ED 03:57 → MED 03:57
PROVIDERS: ADMIT Internal Medicine; ATTEND Internal Medicine

== ENCOUNTER 2018-03-11 16:38 | Inpatient (IN) ==
[2018-03-11] MEDS ORDERED: DiltiaZEM 25 MG/5 ML INJECTION IVP ONE (17:03)
--- NOTE | 2018-03-11 17:04 | Emergency Department Report ---
Cardiac General HPI - General Chief Complaint: Arrhythmia/Palpitations Stated Complaint: fast heart beat, soa Time Seen by Provider: 03/11/18 17:00 Source: patient Mode of arrival: ambulatory Limitations: no limitations - History of Present Illness HPI narrative: Patient is a 57-year-old female presents emergency room for evaluation of rapid heart rate shortness of air. Patient does have a history of atrial fibrillation , is currently on sotalol and Xarelto also has a [place] filter. Patient has been feeling short of breath for the last day or 2, was unable to get an appointment with Dr. Darby on his group until Sunday so decided to present to the ER for evaluation on arrival patient is tachycardic irregularly irregular 120 - Related Data Home Medications Medication Instructions Recorded Confirmed Infliximab [Remicade] 100 mg IV Q60D #0 08/05/13 03/11/18 Diphenoxylate HCl/Atropine 1 - 2 tab PO Q6HPRN PRN #30 tab 07/19/16 03/11/18 [Lomotil 2.5-0.025 mg Tablet] Atorvastatin Calcium 40 mg PO HS #0 tab 01/19/17 03/11/18 ClonazePAM [Klonopin] 1 mg PO TID 03/13/17 03/11/18 Famotidine [Pepcid] 20 mg PO DAILY 03/13/17 03/11/18 Hydrocodone/Acetaminophen 0.5 - 1 tab PO TID PRN 05/30/17 03/11/18 [Hydrocodon-Acetaminophn 10-300] Carvedilol [Carvedilol] 12.5 mg PO BID 03/11/18 03/11/18 Mesalamine [Delzicol] 800 mg PO BID 03/11/18 03/11/18 Midodrine [Proamatine] 20 mg PO BID 03/11/18 03/11/18 Rivaroxaban [Xarelto] 20 mg PO PM 03/11/18 03/11/18 Sotalol [Betapace] 80 mg PO HS 03/11/18 03/11/18 Sotalol [Betapace] 160 mg PO QAM 03/11/18 03/11/18 Allergies Allergy/AdvReac Type Severity Reaction Status Date / Time niacin Allergy Severe AIRWAY Verified 03/11/18 16:55 OBSTRUCTION codeine Allergy Intermediate ITCHING Verified 03/11/18 16:55 escitalopram Allergy Unknown ITCHING Verified 03/11/18 16:55 mercaptopurine Allergy Unknown Verified 03/11/18 16:55 duloxetine AdvReac Intermediate blackout Verified 03/11/18 16:55 prochlorperazine AdvReac Unknown Verified 03/11/18 16:55 quetiapine AdvReac Unknown HEART Verified 03/11/18 16:55 PALPITATIONS Review of Systems Constitutional: Denies: fever, chills Eyes: Denies: eye discharge ENT: Denies: throat pain, dental pain Cardiovascular: Reports: dyspnea on exertion. Denies: chest pain, palpitations Respiratory: Denies: cough, dyspnea, wheezes Gastrointestinal: Denies: abdominal pain, nausea, vomiting Genitourinary: Denies: urgency, dysuria, frequency Neurological: Denies: headache, weakness, numbness Psychiatric: Denies: anxiety, depression Endocrine: Denies: fatigue, heat or cold intolerance Hematological/Lymphatic: Denies: easy bleeding Allergic/Immunologic: Denies: facial swelling PFSH Patient Stated Medical History Cerebrovascular Accident Yes Other HEENT Yes: WEARS GLASSES Angina Yes Cardiac Arrhythmia Yes: AFIB Coronary Artery Disease Yes Hypertension Yes Rheumatic Fever Yes Valvular Heart Disease Yes Other Cardiology Yes: "Blood clot filter" top of heart Chronic Obstructive Pulmonary Yes Disease (COPD) Pneumonia Yes Gastroesophageal Reflux Yes Disease Other GI Yes: CROHNS,IBS Hx Urinary Tract Infection Yes Other Hematologic Yes: BRUISES EASILY Osteoarthritis Yes Anesthesia Reactions Yes: WOKE UP DURING PROCEDURE Blood Transfusions Yes Depression Yes Substance Use Disorder Yes: HX OF etoh Other Behavioral Health Yes: PANIC ATTACKS Clinic Medical History (Last Reviewed 04/19/17 @ 10:21 by Nona Molina RN) Anxiety (Acute Medical) Atrial fibrillation (Acute Medical) Cataracts, bilateral (Acute Medical) Crohn disease (Acute Medical) Depression (Acute Medical) High cholesterol (Acute Medical) Pacemaker (Acute Medical) Stroke (Acute Medical) Surgical History: Colon resections x 3 for crohn's. Mitral valve replacement - tissue (2009). Pacemaker placement (2009) Family History: Family History (Last Reviewed 04/19/17 @ 10:21 by Nona Molina RN) Sister Colon polyps Diabetes Maternal Aunt Cancer of breast Cancer of colon Maternal Grandmother Diabetes Family History Updates: Updated - Social History Smoking status: Current every day smoker Substance use type: does not use Alcohol intake: former Alcohol intake frequency: does not drink Housing: other ([employer] housing) Household members: none Current occupational status: disabled (d/t Cronhn's since 2000) Current residence: Apartment/Private Home Physical Exam - General General appearance: alert, in no apparent distress - Head Head exam: normocephalic - Eye Eye exam: Present: PERRL, EOMI - ENT ENT exam: Present: normal oropharynx, mucous membranes moist, TM's normal bilaterally - Neck Neck exam: Present: full ROM, trachea midline. Absent: tenderness - Chest Chest inspection: Present: symmetric chest wall rise. Absent: tenderness - Respiratory Respiratory exam: Present: normal lung sounds bilaterally. Absent: respiratory distress, wheezes, stridor - Cardiovascular Cardiovascular exam: Present: tachycardia, irregular rhythm, normal heart sounds - Abdominal Exam Abdominal exam: Present: soft. Absent: distention - Back Exam Back exam: Present: full ROM - Skin Skin exam: Present: warm, dry - Neurological Exam Neurological exam: Present: alert, oriented X3 - Psychiatric Psychiatric exam: Present: normal affect, normal mood Course Vital Signs Temperature 98.1 F 03/11/18 16:40 Pulse Rate 108 H 03/11/18 16:40 Respiratory Rate 20 03/11/18 16:40 Blood Pressure 124/76 03/11/18 16:40 Pulse Oximetry 98 03/11/18 16:40 Temperature 98.1 F 03/11/18 16:40 Pulse Rate 108 H 03/11/18 16:40 Respiratory Rate 20 03/11/18 16:40 Blood Pressure 124/76 03/11/18 16:40 Pulse Oximetry 98 03/11/18 16:40 Cardiac General - [facility] Narrative Medical decision making narrative: Discuss case with Dr. Leslie monteiro, he will admit observation status - Differential Diagnosis Differential diagnosis: Likely: palpitations, anxiety, sinus tachycardia, artial fibrillation, artial flutter, ventricular premature beats, supraventricular tachycardia, ventricular tachycardia, WPW - Medical Records Attestation: I reviewed the patient's medical records. - Lab Data Attestation: I reviewed the patient's lab results. Result diagrams: 03/11/18 17:20 03/11/18 17:20 - Radiology Data Attestation: I reviewed the patient's radiology results. Chest x-ray: No acute cardiopulmonary findings - EKG Data EKG #1 EKG attestation: Yes: I reviewed and interpreted this EKG. Rate: tachycardia Rhythm: A.Fib [place]/QRS: normal Interpretation: no acute changes EKG #2 EKG attestation: Yes: I reviewed and interpreted this EKG. Rate: normal Rhythm: A. flutter When compared to previous EKG there are: no significant changes Interpretation: no acute changes Disposition Prescriptions: No Action Atorvastatin Calcium 40 mg PO HS #0 tab Famotidine [Pepcid] 20 mg PO DAILY Hydrocodone/Acetaminophen [Hydrocodon-Acetaminophn 10-300] 0.5 - 1 tab PO TID PRN PRN Reason: Pain Sotalol [Betapace] 80 mg PO HS Mesalamine [Delzicol] 800 mg PO BID Midodrine [Proamatine] 20 mg PO BID Rivaroxaban [Xarelto] 20 mg PO PM Infliximab [Remicade] 100 mg IV Q60D #0 Diphenoxylate HCl/Atropine [Lomotil 2.5-0.025 mg Tablet] 1 - 2 tab PO Q6HPRN PRN #30 tab PRN Reason: Diarrhea ClonazePAM [Klonopin] 1 mg PO TID Carvedilol [Carvedilol] 12.5 mg PO BID Sotalol [Betapace] 160 mg PO QAM Referrals: Randall Hurd MD [Primary Care Provider] - - Seen By: physician
[2018-03-11] MEDS: SALINE FLUSH 10ml SYRINGE IVF PRN ×2 (17:12→17:13)
[2018-03-11] MEDS ORDERED: DIPHENOXYLATE /ATROPINE TABLET PO PRN (18:31)
[2018-03-11] MEDS ORDERED: INFLIXIMAB 100 MG IV SCH (18:31)
[2018-03-11 18:34] VITALS: BMI 22.1
[2018-03-11] MEDS: MIDODRINE 10 MG TABLET PO SCH (19:59)
[2018-03-11] MEDS: ClonazePAM 1 MG TABLET PO SCH (20:00)
[2018-03-11] MEDS: RIVAROXABAN 20 MG TABLET PO SCH (20:03)
[2018-03-11] MEDS: CARVEDILOL 12.5 MG TABLET PO SCH (20:03)
[2018-03-11] MEDS: MESALAMINE 800 MG TABLET PO SCH (20:03)
[2018-03-11] MEDS: ATORVASTATIN 40 MG TABLET PO SCH (20:03)
[2018-03-11] MEDS: HYDROCODONE/APAP 10 MG/325 MG TABLET PO PRN (20:08)
[2018-03-12] MEDS: MIDODRINE 10 MG TABLET PO SCH ×3 (01:43→20:58)
[2018-03-12] MEDS ORDERED: SALINE FLUSH 10ml SYRINGE ONE (06:36)
--- NOTE | 2018-03-12 07:47 | Cardiology History & Physical ---
History of Present Illness Chief complaint: palpitations HPI: Viktor is a 57-year-old female who is known to Dr. Nelson with a history of PAF , Biotronik PPM, NR Ao stenosis, NR Mitral insufficiency, prosthetic heart valve and Chron's disease who presents ED room for evaluation of rapid heart rate and shortness of air. She is currently on sotalol and Xarelto also has a Mati filter. She has been feeling short of breath for the last day or 2, on arrival patient was tachycardic, irregularly irregular, HR 120. She denies recent illness, fever, chills, sore throat, cough, chest pain, N/V/D , dysuria. Review of Systems - Constitutional Constitutional: Present: as per HPI - EENMT Eyes: Absent: change in vision Balance: Absent: vertigo - Cardiovascular Cardiovascular: Present: palpitations, dyspnea on exertion. Absent: chest pain , syncope, orthopnea, edema, heart murmur Rhythm: Present: abnormal rhythm Vascular: Absent: pedal edema - Respiratory Respiratory: Present: as per HPI, dyspnea - Gastrointestinal Gastrointestinal: Present: as per HPI - Genitourinary Genitourinary: Present: as per HPI - Integumentary/Breasts Integumentary: Absent: rash - Neurological Neurological: Absent: dizziness - Endocrine Endocrine: Present: palpitations PFSH Patient Stated Medical History Cerebrovascular Accident Yes Other HEENT Yes: WEARS GLASSES Angina Yes Cardiac Arrhythmia Yes: AFIB Coronary Artery Disease Yes Hypertension Yes Rheumatic Fever Yes Valvular Heart Disease Yes Other Cardiology Yes: "Blood clot filter" top of heart Pneumonia Yes Gastroesophageal Reflux Yes Disease Other GI Yes: CROHNS,IBS Hx Urinary Tract Infection Yes Other Hematologic Yes: BRUISES EASILY Osteoarthritis Yes Anesthesia Reactions Yes: WOKE UP DURING PROCEDURE Blood Transfusions Yes Depression Yes Substance Use Disorder Yes: HX OF etoh Other Behavioral Health Yes: PANIC ATTACKS Post Menopausal Yes Clinic Medical History (Last Reviewed 04/19/17 @ 10:21 by Nona Molina RN) Anxiety (Acute Medical) Atrial fibrillation (Acute Medical) Cataracts, bilateral (Acute Medical) Crohn disease (Acute Medical) Depression (Acute Medical) High cholesterol (Acute Medical) Pacemaker (Acute Medical) Stroke (Acute Medical) Surgical History: Colon resections x 3 for crohn's. Mitral valve replacement - tissue (2009). Pacemaker placement (2009) Family History: Family History (Last Reviewed 04/19/17 @ 10:21 by Nona Molina RN) Sister Colon polyps Diabetes Maternal Aunt Cancer of breast Cancer of colon Maternal Grandmother Diabetes Family History Updates: Updated - Social History Smoking status: Current every day smoker Substance use type: does not use Alcohol intake: former Alcohol intake frequency: does not drink Housing: other ([facility]) Household members: none Current occupational status: disabled (d/t Cronhn's since 2000) Current residence: Apartment/Private Home Medications Home Medications Medication Instructions Recorded Confirmed Type Infliximab [Remicade] 100 mg IV Q60D #0 08/05/13 03/11/18 History Diphenoxylate HCl/Atropine 1 - 2 tab PO Q6HPRN PRN #30 tab 07/19/16 03/11/18 History [Lomotil 2.5-0.025 mg Tablet] Atorvastatin Calcium 40 mg PO HS #0 tab 01/19/17 03/11/18 History ClonazePAM [Klonopin] 1 mg PO TID 03/13/17 03/11/18 History Famotidine [Pepcid] 20 mg PO DAILY 03/13/17 03/11/18 History Hydrocodone/Acetaminophen 0.5 - 1 tab PO TID PRN 05/30/17 03/11/18 History [Hydrocodon-Acetaminophn 10-300] Carvedilol 12.5 mg PO BID 03/11/18 03/11/18 History Mesalamine [Delzicol] 800 mg PO BID 03/11/18 03/11/18 History Midodrine [Proamatine] 20 mg PO BID 03/11/18 03/11/18 History Rivaroxaban [Xarelto] 20 mg PO PM 03/11/18 03/11/18 History Amiodarone [Pacerone] 200 mg PO DAILY #30 tab 03/13/18 Rx Amiodarone [Pacerone] 400 mg PO BID #22 tab 03/13/18 Rx Allergies Allergy/AdvReac Type Severity Reaction Status Date / Time niacin Allergy Severe AIRWAY Verified 03/11/18 18:32 OBSTRUCTION codeine Allergy Intermediate ITCHING Verified 03/11/18 18:32 escitalopram Allergy Unknown ITCHING Verified 03/11/18 18:32 mercaptopurine Allergy Unknown Verified 03/11/18 18:32 duloxetine AdvReac Intermediate blackout Verified 03/11/18 18:32 prochlorperazine AdvReac Unknown Verified 03/11/18 18:32 quetiapine AdvReac Unknown HEART Verified 03/11/18 18:32 PALPITATIONS Exam Vital signs: Temperature 97.9 F 03/12/18 00:04 Pulse Rate 72 03/12/18 07:33 Respiratory Rate 12 03/12/18 07:33 Blood Pressure 99/68 03/12/18 07:33 Pulse Oximetry 97 03/12/18 07:33 - Constitutional mild distress, well nourished, cooperative - Routine HEENT Exam Head: Present: normocephalic ENT: Present: mucous membranes moist - Routine Neck Exam Absent: JVD, carotid bruit - Routine Chest/Breast/Axilla Exam Chest wall: Present: pacemaker. Absent: tenderness - Routine Respiratory Exam Present: CTA bilaterally. Absent: rales, wheezes - Routine Cardiovascular Exam Present: murmur (I/), irregularly irregular - Routine Abdominal Exam Present: soft, non tender - Routine Extremities Exam Present: no edema - Routine Skin Exam Present: intact, dry, warm - Routine Neurological Exam Present: alert - Routine Psychiatric Exam Present: normal affect Results 03/13/18 04:33 03/13/18 04:33 CBC 03/12/18 Range/Units 05:26 WBC 7.5 (4.5-11.0) T/MM3 RBC 3.94 L (4.00-5.20) M/MM3 Hgb 11.8 L (12-16) GM/DL Hct 37.3 (36-46) % Plt Count 358 (130-400) T/MM3 Comprehensive Metabolic Panel 03/12/18 Range/Units 05:26 Sodium 145 (136-146) MEQ/L Potassium 4.1 (3.6-5) MEQ/L Chloride 107 (98-107) MEQ/L Carbon Dioxide 28 (22-30) MEQ/L BUN 13.0 (7-17) MG/DL Creatinine 0.8 (0.7-1.2) mg/dL Glucose 87 (65-110) MG/DL Calcium 9.2 (8.4-10.2) MG/DL Intake and Output 03/11/18 03/12/18 03/12/18 22:59 06:59 14:59 Intake Total 220 / 220 Balance 220 / 220 Intake: Oral 220 / 220 Other: # Voids 1 Weight 129 lb 6.581 oz EKG interpretations - EKG EKG shows: atrial fibrillation Hospital Course This is a general summary of the patient's hospital course. For more details refer to the complete medical record. Time spent with patient: 25 - 35 minutes Resuscitation Status: Full Code Assessment and Plan - Attestation Attestation Narrative: 03/19/18 14:23 Recommendation After examining the patient I agree with the above assessment. I am involved in the formulation of the patient's plan of care. - Assessment and Plan (1) Palpitations Status: Acute C/O rapid heart rate and shortness of air last 1-2 days - Takes Sotalol and Xarelto for PAF (2) Atrial fibrillation with RVR Status: Acute C/O rapid heart rate and shortness of air last 1-2 days - Rate controlled with IV Cardizem in ED - Admit to observation for DCCV in am - NPO after midnight - EKG prn conversion to SR - Continue Xarelto for stroke prevention (3) Nonrheumatic aortic valve stenosis Status: Chronic continue current therapy, routine monitoring (4) Presence of prosthetic heart valve Status: Chronic Continue risk management (5) Presence of cardiac pacemaker Problem details: Biotronik Status: Chronic Interrogate PPM please - Continue home monitoring (6) Nonrheumatic mitral valve insufficiency Status: Chronic continue current therapy, routine monitoring (7) Crohn's disease without complication Status: Chronic
--- NOTE | 2018-03-12 08:13 | XRay Report ---
Indication: cardiac eval PROCEDURE: XR chest 1V: Encounter: Initial Comparison: October 09, 2017 Findings: The lungs are stable in appearance without new focal airspace consolidation. There is no pleural effusion or pneumothorax. The heart size, pulmonary vascularity and mediastinal contours are unchanged. Support devices are stable. IMPRESSION: Stable appearance of the chest without acute cardiopulmonary disease. .
[2018-03-12] MEDS: AMIODARONE 200 MG TABLET PO SCH ×2 (08:34→20:58)
[2018-03-12] MEDS: CARVEDILOL 12.5 MG TABLET PO SCH ×2 (08:35→20:58)
[2018-03-12] MEDS: MESALAMINE 800 MG TABLET PO SCH ×2 (08:35→20:58)
[2018-03-12] MEDS: FAMOTIDINE 20 MG TABLET PO SCH (08:35)
[2018-03-12] MEDS: ClonazePAM 1 MG TABLET PO SCH ×3 (08:35→20:58)
--- NOTE | 2018-03-12 08:38 | Cardiology Progress Note ---
<AshleyAlyssa wells M - Last Filed: 03/13/18 08:17> Subjective Principal diagnosis: A Fib Interval history: García is seen in follow up for A Fib with RVR. She converted early this morning and states she is feeling much better. She denies chest pain, pressure, tightness, palpitations, dyspnea, dizziness, nausea Exam Vital signs: Temperature 98.1 F 03/12/18 07:49 Pulse Rate 72 03/12/18 07:33 Respiratory Rate 12 03/12/18 07:33 Blood Pressure 99/68 03/12/18 07:33 Pulse Oximetry 97 03/12/18 07:33 Inpatient Medications: Generic Name Dose Route Start Last Admin Trade Name Freq PRN Reason Stop Dose Admin Hydrocodone Bitart/Acetaminophen 0.5 - 1 tab 03/11/18 18:31 03/11/18 20:08 [place] 10/325 PO 1 tab TID PRN Administration Pain Amiodarone HCl 400 mg 03/12/18 09:00 Pacerone PO 03/18/18 21:00 BID LINDSEY Amiodarone HCl 200 mg 03/19/18 09:00 Pacerone PO DAILY LINDSEY Atorvastatin Calcium 40 mg 03/11/18 21:00 03/11/18 20:03 Lipitor PO Not Given HS LINDSEY Carvedilol 12.5 mg 03/11/18 21:00 03/11/18 20:03 Coreg PO Not Given BID LINDSEY Clonazepam 1 mg 03/11/18 21:00 03/11/18 20:00 Klonopin PO 1 mg TID LINDSEY Administration Diphenoxylate HCl/Atropine 1 - 2 tab 03/11/18 18:31 Lomotil PO Q6H PRN Diarrhea Famotidine 20 mg 03/12/18 09:00 Pepcid PO DAILY LINDSEY Infliximab 100 mg 03/11/18 18:31 Remicade IV Q60D LINDSEY Mesalamine 800 mg 03/11/18 21:00 03/11/18 20:03 Asacol Hd PO Not Given BID LINDSEY Midodrine 20 mg 03/11/18 21:00 03/12/18 01:43 Proamatine PO Not Given BID LINDSEY Rivaroxaban 20 mg 03/11/18 20:00 03/11/18 20:03 Xarelto PO Not Given PM [facility] Sodium Chloride 10 - 80 ml 03/11/18 17:00 06/18/18 17:13 Iv Flush IVF 20 ml PRN PRN Administration Flushing Discontinued Medications Generic Name Dose Route Start Last Admin Trade Name Anuradha PRN Reason Stop Dose Admin Amiodarone HCl 200 mg 03/12/18 09:00 Pacerone PO 03/19/18 09:00 DAILY LINDSEY Amiodarone HCl 200 mg 03/12/18 09:00 Pacerone PO DAILY LINDSEY Diltiazem HCl 10 mg 03/11/18 17:03 03/11/18 17:11 Cardizem 25 Mg Inj IVP 03/11/18 17:04 10 mg O ONE Administration - Constitutional no acute distress, well nourished, cooperative - Routine HEENT Exam Head: Present: normocephalic ENT: Present: mucous membranes moist - Routine Neck Exam Absent: JVD, carotid bruit - Routine Chest/Breast/Axilla Exam Chest wall: Present: pacemaker. Absent: tenderness - Routine Respiratory Exam Present: CTA bilaterally. Absent: rales, wheezes - Routine Cardiovascular Exam Present: RRR, murmur (I/) - Routine Abdominal Exam Present: soft, non tender - Routine Extremities Exam Present: no edema - Routine Skin Exam Present: intact, dry, warm - Routine Neurological Exam Present: alert, oriented X3 - Routine Psychiatric Exam Present: normal affect Results 03/12/18 05:26 03/12/18 05:26 CBC 03/12/18 Range/Units 05:26 WBC 7.5 (4.5-11.0) T/MM3 RBC 3.94 L (4.00-5.20) M/MM3 Hgb 11.8 L (12-16) GM/DL Hct 37.3 (36-46) % Plt Count 358 (130-400) T/MM3 Comprehensive Metabolic Panel 03/12/18 Range/Units 05:26 Sodium 145 (136-146) MEQ/L Potassium 4.1 (3.6-5) MEQ/L Chloride 107 (98-107) MEQ/L Carbon Dioxide 28 (22-30) MEQ/L BUN 13.0 (7-17) MG/DL Creatinine 0.8 (0.7-1.2) mg/dL Glucose 87 (65-110) MG/DL Calcium 9.2 (8.4-10.2) MG/DL Intake and Output 03/11/18 03/12/18 03/12/18 22:59 06:59 14:59 Intake Total 220 / 220 Balance 220 / 220 Intake: Oral 220 / 220 Other: # Voids 1 Weight 129 lb 6.581 oz - Imaging and Cardiology Imaging & Cardiology Narrative: Date of Exam: 03/11/18 Ordering Provider: Gareth Rogers MD Type of Exam(s): XR chest 1V Reason for Exam(s): cardiac eval Indication: cardiac eval PROCEDURE: XR chest 1V: Encounter: Initial Comparison: October 09, 2017 Findings: The lungs are stable in appearance without new focal airspace consolidation. There is no pleural effusion or pneumothorax. The heart size, pulmonary vascularity and mediastinal contours are unchanged. Support devices are stable. IMPRESSION: Stable appearance of the chest without acute cardiopulmonary disease. 03/12/18 08:36 - EKG Interpretation EKG: WNL (A paced) Assessment and Plan - Assessment and Plan (1) Palpitations Status: Acute (2) Atrial fibrillation with RVR Status: Acute (3) Nonrheumatic aortic valve stenosis Status: Chronic (4) Presence of prosthetic heart valve Status: Chronic (5) Presence of cardiac pacemaker Problem details: Biotronik Status: Chronic (6) Nonrheumatic mitral valve insufficiency Status: Chronic (7) Crohn's disease without complication Status: Chronic - Assessment and Plan 03/11/18 Palpitations Current visit: Yes Status: Acute C/O rapid heart rate and shortness of air last 1-2 days - Takes Sotalol and Xarelto for PAF Atrial fibrillation with RVR Current visit: No Status: Acute C/O rapid heart rate and shortness of air last 1-2 days - Rate controlled with IV Cardizem in ED - Admit to observation for DCCV in am - NPO after midnight - EKG prn conversion to SR - Continue Xarelto for stroke prevention Nonrheumatic aortic valve stenosis Current visit: Yes Status: Chronic continue current therapy, routine monitoring Presence of prosthetic heart valve Current visit: Yes Status: Chronic Continue risk management Presence of cardiac pacemaker Problem details: Biotronik Current visit: No Status: Chronic Interrogate PPM please - Continue home monitoring Nonrheumatic mitral valve insufficiency Current visit: No Status: Chronic continue current therapy, routine monitoring Crohn's disease without complication Current visit: Yes Status: Chronic 03/12/18 - Converted to SR - EKG: A paced - Start Amiodarone 400mg BID for 7 days then 200mg daily for antiarrhythmic therapy - Monitor cardiac telemetry closely for arrhythmias of immediate concern - Monitor QT by repeat EKG in am - Monitor LFTs - Continue [facility] Course Summary Disclaimer: The visit summary below is not to be considered part of the above Progress Note. <Thomas Nelson - Last Filed: 03/19/18 14:26> Exam Vital signs: Temperature 98.6 F 03/13/18 08:42 Pulse Rate 73 03/13/18 08:42 Respiratory Rate 18 03/13/18 10:24 Blood Pressure 108/69 03/13/18 08:42 Pulse Oximetry 95 03/13/18 08:42 Inpatient Medications: Discontinued Medications Generic Name Dose Route Start Last Admin Trade Name Freq PRN Reason Stop Dose Admin Hydrocodone Bitart/Acetaminophen 0.5 - 1 tab 03/11/18 18:31 03/12/18 22:48 [place] 10/325 PO 1 tab TID PRN Administration Pain Amiodarone HCl 400 mg 03/12/18 09:00 03/13/18 08:41 Pacerone PO 03/18/18 21:00 400 mg BID LINDSEY Administration Amiodarone HCl 200 mg 03/12/18 09:00 Pacerone PO 03/19/18 09:00 DAILY LIND[place]Y Amiodarone HCl 200 mg 03/12/18 09:00 Pacerone PO DAILY LINDSEY Amiodarone HCl 200 mg 03/19/18 09:00 Pacerone PO DAILY LINDSEY Atorvastatin Calcium 40 mg 03/11/18 21:00 03/12/18 20:58 Lipitor PO 40 mg HS LINDSEY Administration Carvedilol 12.5 mg 03/11/18 21:00 03/13/18 08:41 Coreg PO 12.5 mg BID LINDSEY Administration Clonazepam 1 mg 03/11/18 21:00 03/13/18 08:41 Klonopin PO 1 mg TID LINDSEY Administration Diltiazem HCl 10 mg 03/11/18 17:03 03/11/18 17:11 Cardizem 25 Mg Inj IVP 03/11/18 17:04 10 mg O ONE Administration Diphenoxylate HCl/Atropine 1 - 2 tab 03/11/18 18:31 03/12/18 09:08 Lomotil PO 1 tab Q6H PRN Administration Diarrhea Famotidine 20 mg 03/12/18 09:00 03/13/18 08:41 Pepcid PO 20 mg DAILY LINDSEY Administration Heparin Sodium (Beef Lung) 500 unit 03/13/18 10:04 03/13/18 10:15 Heparin Flush IV 500 unit PRN PRN Administration Infliximab 100 mg 03/11/18 18:31 03/12/18 10:14 Remicade IV Not Given Q60D LINDSEY Mesalamine 800 mg 03/11/18 21:00 03/13/18 08:41 Asacol Hd PO 800 mg BID LINDSEY Administration Midodrine 20 mg 03/11/18 21:00 03/13/18 08:40 Proamatine PO 20 mg BID LINDSEY Administration Rivaroxaban 20 mg 03/11/18 20:00 03/12/18 20:58 Xarelto PO 20 mg PM LINDSEY Administration Sodium Chloride 10 - 80 ml 03/11/18 17:00 03/12/18 22:48 Iv Flush IVF 10 ml PRN PRN Administration Flushing Results 03/13/18 04:33 03/13/18 04:33 Assessment and Plan - Assessment and Plan (1) Palpitations Status: Acute (2) Atrial fibrillation with RVR Status: Acute (3) Nonrheumatic aortic valve stenosis Status: Chronic (4) Presence of prosthetic heart valve Status: Chronic (5) Presence of cardiac pacemaker Problem details: Biotronik Status: Chronic (6) Nonrheumatic mitral valve insufficiency Status: Chronic (7) Crohn's disease without complication Status: Chronic - Attestation Attestation Narrative: 03/19/18 14:26 Recommendation After examining the patient I agree with the above assessment. I am involved in the formulation of the patient's plan of care. Hospital Course Summary Disclaimer: The visit summary below is not to be considered part of the above Progress Note.
[2018-03-12] MEDS ORDERED: AMIODARONE 200 MG TABLET PO SCH ×2 (09:00)
[2018-03-12] MEDS: HYDROCODONE/APAP 10 MG/325 MG TABLET PO PRN ×3 (09:08→22:48)
[2018-03-12] MEDS: RIVAROXABAN 20 MG TABLET PO SCH (20:58)
[2018-03-12] MEDS: ATORVASTATIN 40 MG TABLET PO SCH (20:58)
[2018-03-12] MEDS: SALINE FLUSH 10ml SYRINGE IVF PRN (22:48)
--- NOTE | 2018-03-13 08:23 | Discharge Summary ---
<Alyssa Ramirez - Last Filed: 03/17/18 08:31> Discharge Information Date of admission: 03/12/18 10:28 Anticipated date of discharge: 03/13/18 Attending Physician: Thomas Nelson MD Primary care physician: Randall Hurd MD - Discharge Diagnosis (1) Palpitations Status: Acute (2) Atrial fibrillation with RVR Status: Acute (3) Nonrheumatic aortic valve stenosis Status: Chronic (4) Presence of prosthetic heart valve Status: Chronic (5) Presence of cardiac pacemaker Status: Chronic (6) Nonrheumatic mitral valve insufficiency Status: Chronic (7) Crohn's disease without complication Status: Chronic Atrial fibrillation - Laboratory Labs: 03/13/18 04:33 03/13/18 04:33 History of Present Illness HPI: Viktor is a 57-year-old female who is known to Dr. Nelson with a history of PAF , Biotronik PPM, NR Ao stenosis, NR Mitral insufficiency, prosthetic heart valve and Chron's disease who presents ED room for evaluation of rapid heart rate and shortness of air. She is currently on sotalol and Xarelto also has a Mati filter. She has been feeling short of breath for the last day or 2, on arrival patient was tachycardic, irregularly irregular, HR 120. She denies recent illness, fever, chills, sore throat, cough, chest pain, N/V/D , dysuria. Hospital Course This is a general summary of the patient's hospital course. For more details refer to the complete medical record. Hospital course: 03/11/18 Palpitations Current visit: Yes Status: Acute C/O rapid heart rate and shortness of air last 1-2 days - Takes Sotalol and Xarelto for PAF Atrial fibrillation with RVR Current visit: No Status: Acute C/O rapid heart rate and shortness of air last 1-2 days - Rate controlled with IV Cardizem in ED - Admit to observation for DCCV in am - NPO after midnight - EKG prn conversion to SR - Continue Xarelto for stroke prevention Nonrheumatic aortic valve stenosis Current visit: Yes Status: Chronic continue current therapy, routine monitoring Presence of prosthetic heart valve Current visit: Yes Status: Chronic Continue risk management Presence of cardiac pacemaker Problem details: Biotronik Current visit: No Status: Chronic Interrogate PPM please - Continue home monitoring Nonrheumatic mitral valve insufficiency Current visit: No Status: Chronic continue current therapy, routine monitoring Crohn's disease without complication Current visit: Yes Status: Chronic 03/12/18 - Converted to SR - EKG: A paced - Start Amiodarone 400mg BID for 7 days then 200mg daily for antiarrhythmic therapy - Monitor cardiac telemetry closely for arrhythmias of immediate concern - Monitor QT by repeat EKG in am - Monitor LFTs - Continue Xarelto Time spent with patient: 25 - 35 minutes Resuscitation Status: Full Code Exam Vital signs: Temperature 96.8 F 03/12/18 22:59 Pulse Rate 71 03/13/18 07:56 Respiratory Rate 18 03/12/18 22:59 Blood Pressure 102/60 03/13/18 04:49 Pulse Oximetry 97 03/12/18 22:59 - Constitutional no acute distress, well nourished, cooperative - Routine HEENT Exam Head: Present: normocephalic ENT: Present: mucous membranes moist - Routine Neck Exam Absent: JVD, carotid bruit - Routine Chest/Breast/Axilla Exam Chest wall: Present: pacemaker. Absent: tenderness - Routine Respiratory Exam Present: CTA bilaterally. Absent: dyspnea, rales, wheezes - Routine Cardiovascular Exam Present: RRR, murmur (I/). Absent: JVD - Routine Abdominal Exam Present: soft, non tender - Routine Extremities Exam Present: no edema - Routine Skin Exam Present: intact, dry, warm - Routine Neurological Exam Present: alert, oriented X3 - Routine Psychiatric Exam Present: normal affect, normal thought process Results 03/13/18 04:33 03/13/18 04:33 Cardiac Enzymes 03/13/18 Range/Units 04:33 AST 19 (14-36) U/L CBC 03/13/18 Range/Units 04:33 WBC 8.2 (4.5-11.0) T/MM3 RBC 3.68 L (4.00-5.20) M/MM3 Hgb 11.2 L (12-16) GM/DL Hct 34.6 L (36-46) % Plt Count 335 (130-400) T/MM3 Comprehensive Metabolic Panel 03/13/18 Range/Units 04:33 Sodium 144 (136-146) MEQ/L Potassium 3.9 (3.6-5) MEQ/L Chloride 107 (98-107) MEQ/L Carbon Dioxide 27 (22-30) MEQ/L BUN 15.0 (7-17) MG/DL Creatinine 0.8 (0.7-1.2) mg/dL Glucose 86 (65-110) MG/DL Calcium 8.9 (8.4-10.2) MG/DL AST 19 (14-36) U/L ALT 15 (1-35) U/L Alkaline Phosphatase 78 (38-126) U/L Total Protein 6.3 (6.3-8.2) g/dL Albumin 3.6 (3.5-5.0) g/dL Intake and Output 03/12/18 03/13/18 03/13/18 22:59 06:59 14:59 Intake Total 615 / 615 50 / 50 Output Total 250 / 250 550 / 550 Balance 365 / 365 -500 / -500 Intake: Oral 615 / 615 50 / 50 Output: Urine 250 / 250 550 / 550 Other: Urine Appearance Clear Clear Urine Color Straw Yellow Urine Odor Normal Normal Weight 134 lb 0.657 oz Patient Weight 03/14/18 06:59 Weight 134 lb 0.657 oz - Imaging and Cardiology Imaging & Cardiology Narrative: Date of Exam: 03/11/18 Ordering Provider: Gareth Rogers MD Type of Exam(s): XR chest 1V Reason for Exam(s): cardiac eval Indication: cardiac eval PROCEDURE: XR chest 1V: Encounter: Initial Comparison: October 09, 2017 Findings: The lungs are stable in appearance without new focal airspace consolidation. There is no pleural effusion or pneumothorax. The heart size, pulmonary vascularity and mediastinal contours are unchanged. Support devices are stable. IMPRESSION: Stable appearance of the chest without acute cardiopulmonary disease. . 03/13/18 08:48 Discharge Plan - Med Rec/Dispo Referrals/Follow Up: Thomas Nelson MD [Physician] - 04/03/18 11:30 am Alejandro Instructions: Amiodarone (By mouth) (Cordarone, Pacerone), Atrial Flutter (DC), A-fib (Atrial Fibrillation) (DC) Prescriptions: New Amiodarone [Pacerone] 200 mg PO DAILY #30 tab Continue Atorvastatin Calcium 40 mg PO HS #0 tab Famotidine [Pepcid] 20 mg PO DAILY Hydrocodone/Acetaminophen [Hydrocodon-Acetaminophn 10-300] 0.5 - 1 tab PO TID PRN PRN Reason: Pain Mesalamine [Delzicol] 800 mg PO BID Midodrine [Proamatine] 20 mg PO BID PRN PRN Reason: Prn Orders Infliximab [Remicade] 100 mg IV Q60D #0 Diphenoxylate HCl/Atropine [Lomotil 2.5-0.025 mg Tablet] 1 - 2 tab PO Q6HPRN PRN #30 tab PRN Reason: Diarrhea ClonazePAM [Klonopin] 1 mg PO TID Carvedilol 12.5 mg PO BID Discontinued Sotalol [Betapace] 80 mg PO HS Sotalol [Betapace] 160 mg PO QAM No Action Estradiol 42.5 gm VG PRN PRN PRN Reason: Prn Orders Rivaroxaban [Xarelto] 20 mg PO WS - Disposition 01 Discharged Home, Self-Care - Dismissal Complete Discharge Instructions are:: Complete <Thomas Nelson - Last Filed: 03/21/18 18:04> Discharge Information Date of admission: 03/12/18 10:28 Attending Physician: Thomas Nelson MD Primary care physician: Randall Hurd MD - Discharge Diagnosis (1) Palpitations Status: Acute (2) Atrial fibrillation with RVR Status: Acute (3) Nonrheumatic aortic valve stenosis Status: Chronic (4) Presence of prosthetic heart valve Status: Chronic (5) Presence of cardiac pacemaker Status: Chronic (6) Nonrheumatic mitral valve insufficiency Status: Chronic (7) Crohn's disease without complication Status: Chronic - Laboratory Labs: 03/13/18 04:33 03/13/18 04:33 Hospital Course This is a general summary of the patient's hospital course. For more details refer to the complete medical record. Exam Vital signs: Temperature 98.6 F 03/13/18 08:42 Pulse Rate 73 03/13/18 08:42 Respiratory Rate 18 03/13/18 10:24 Blood Pressure 108/69 03/13/18 08:42 Pulse Oximetry 95 03/13/18 08:42 Results 03/13/18 04:33 03/13/18 04:33 Attestation Narriative - Attestation Attestation Narrative: 03/21/18 18:04 Recommendation After examining the patient I agree with the above assessment. I am involved in the formulation of the patient's plan of care.
[2018-03-13] MEDS: MIDODRINE 10 MG TABLET PO SCH (08:40)
[2018-03-13] MEDS: MESALAMINE 800 MG TABLET PO SCH (08:41)
[2018-03-13] MEDS: ClonazePAM 1 MG TABLET PO SCH (08:41)
[2018-03-13] MEDS: FAMOTIDINE 20 MG TABLET PO SCH (08:41)
[2018-03-13] MEDS: CARVEDILOL 12.5 MG TABLET PO SCH (08:41)
[2018-03-13] MEDS: AMIODARONE 200 MG TABLET PO SCH (08:41)
[2018-03-13 08:42] VITALS: BP 108/69; PULSE 73; TEMP 98.6; O2SAT 95
[2018-03-13 10:25] VITALS: RESP 18
[2018-03-19] MEDS ORDERED: AMIODARONE 200 MG TABLET PO SCH (09:00)
== END 2018-03-13 10:55 | disposition home or self-care (01) | DRG 309 ==
LOC: EDHOLD 16:38 → ED 16:38 → SRG 18:26
PROVIDERS: ADMIT Internal Medicine Cardiovascular Disease; ATTEND Internal Medicine Cardiovascular Disease